=== PATIENT | female | born 1955 | race Caucasian/White ===

== ENCOUNTER 2017-01-04 10:41 | Emergency (ER) | payer OTHER ==
[~2017-01-04] VITALS: Ht 162.6 cm; Wt 103.3 kg
[~2017-01-04 10:41] MED LIST: AMIO200T42 PO; AMLO5TAB2 PO; ASPI-621 PO; ATOR10TA PO; CITA40TA12 PO; CLOP75TA PO; DICL50TA2 PO; DOCU-131 PO; FENO54TA17 PO; FLUT15.88 NAS; FLUTICASONE PROPION PO; GABA300C10 PO; GLIP10TA13 PO; GLIP5TAB22 PO; IPRA3AMP IPPB; JANUMET PO; LOVA10TA PO; MECL25TA4 PO; MELO15TA24 PO; METF10002 PO; METF500T PO; METO50TA82 PO; OMEP-110 PO; PANT40TA5 PO; PRAV40TA2 PO; RAMI10CA PO; ROPI2TAB4 PO; ROPI4TAB4 PO; TRAM50TA2 PO
[2017-01-04] MEDS ORDERED: METF1000 PO (11:13)
[2017-01-04] MEDS ORDERED: RAMI10CA PO (11:13)
[2017-01-04] MEDS ORDERED: SODIUM CHLORIDE FLUSH 10ML SYR IVF ONE (11:30)
[2017-01-04 11:44] LABS: HEMATOCRIT 37.4 % (34.6-47.8); HEMOGLOBIN 12.4 g/dL (11.7-16.4); WHITE BLOOD COUNT 7.7 x10^3/uL (3.4-10)
[2017-01-04 12:09] LABS: BLOOD UREA NITROGEN 14 mg/dL (7-18)
[2017-01-04 12:20] LABS: DIFF TOTAL CELLS COUNTED 100 CELL DIFF
[2017-01-04 12:21] LABS: ANISOCYTOSIS 1+; ASPARTATE AMINO TRANSFERASE 17 U/L (15-37); IS PT STATUS REG ER OR PRE ER? YES; MICROCYTOSIS 1+; VERIFY COUNTS? YES
[2017-01-04] MEDS ORDERED: LIDOCAINE 1%, 20ML ONE ×2 (12:56→13:28)
[2017-01-04 13:15] VITALS: BP 157/80
[2017-01-05] MEDS ORDERED: GLIP-164 PO (23:06)
[2017-01-05] MEDS ORDERED: CLOP75TA52 PO (23:06)
[2017-01-06] MEDS ORDERED: FLUT9.9S NAS (12:51)
[2017-01-07] MEDS ORDERED: POTA10TA11 PO (11:01)
[2017-01-07] MEDS ORDERED: GLIP-164 PO (11:01)
[2017-01-07] MEDS ORDERED: FURO-93 PO (11:01)
[2017-01-07] MEDS ORDERED: INSU100I28 SQ-INSULIN (11:01)
[2017-01-07] MEDS ORDERED: INSU100V8 SQ ×2 (11:52→11:53)
== END 2017-01-04 14:12 | disposition home or self-care (01) ==
LOC: ED 13:14
DX: R06.00 Dyspnea, unspecified (principal); J91.0 Malignant pleural effusion; K21.9 Gastro-esophageal reflux disease without esophagitis; I10 Essential (primary) hypertension; E11.9 Type 2 diabetes mellitus without complications; E78.00 Pure hypercholesterolemia, unspecified; Z90.49 Acquired absence of other specified parts of digestive tract
CPT/HCPCS: 32555; 36415; 71020; 80053; 84484; 85025; 85610; 85730; 93005; 93971; 99285; J3490

== ENCOUNTER 2017-03-15 17:55 | Emergency (ER) | payer OTHER ==
[~2017-03-15] VITALS: Ht 162.6 cm; Wt 102.8 kg
[~2017-03-15 17:55] MED LIST changes: +CLOP75TA52 PO; +FLUT9.9S NAS; +FURO-93 PO; +GLIP-164 PO; +INSU100I28 SQ-INSULIN; +INSU100V8 SQ; +METF1000 PO; +POTA10TA11 PO
[2017-03-15 19:43] VITALS: BP 120/60
== END 2017-03-15 19:47 | disposition home or self-care (01) ==
LOC: ED 18:39
DX: I80.8 Phlebitis and thrombophlebitis of other sites (principal); K21.9 Gastro-esophageal reflux disease without esophagitis; E78.00 Pure hypercholesterolemia, unspecified; E11.65 Type 2 diabetes mellitus with hyperglycemia; I10 Essential (primary) hypertension; Z90.49 Acquired absence of other specified parts of digestive tract; Z90.710 Acquired absence of both cervix and uterus; Z95.1 Presence of aortocoronary bypass graft
CPT/HCPCS: 99284

== ENCOUNTER 2017-05-27 10:14 | Emergency (ER) | payer OTHER ==
[~2017-05-27] VITALS: Ht 160 cm; Wt 101.9 kg
[2017-05-27 10:17] VITALS: BP 157/78
== END 2017-05-27 10:52 | disposition home or self-care (01) ==
LOC: ED 10:34
DX: L02.412 Cutaneous abscess of left axilla (principal); K21.9 Gastro-esophageal reflux disease without esophagitis; I10 Essential (primary) hypertension; E11.65 Type 2 diabetes mellitus with hyperglycemia; E78.00 Pure hypercholesterolemia, unspecified; Z90.49 Acquired absence of other specified parts of digestive tract; Z90.710 Acquired absence of both cervix and uterus; Z95.1 Presence of aortocoronary bypass graft
CPT/HCPCS: 99283

== ENCOUNTER 2017-05-29 16:04 | Emergency (ER) | payer OTHER ==
[~2017-05-29] VITALS: Ht 160 cm; Wt 101.5 kg
[2017-05-29 16:05] VITALS: BP 167/75
== END 2017-05-29 17:38 | disposition home or self-care (01) ==
LOC: ED 16:50
DX: L02.412 Cutaneous abscess of left axilla (principal); E11.65 Type 2 diabetes mellitus with hyperglycemia; K21.9 Gastro-esophageal reflux disease without esophagitis; I10 Essential (primary) hypertension; Z90.49 Acquired absence of other specified parts of digestive tract; Z90.710 Acquired absence of both cervix and uterus; Z95.1 Presence of aortocoronary bypass graft; Z91.010 Allergy to peanuts
CPT/HCPCS: 99283

== ENCOUNTER 2017-09-15 19:51 | Inpatient (IN) | payer OTHER ==
[~2017-09-15] VITALS: Ht 160 cm; Wt 102.5 kg
[2017-09-15] MEDS ORDERED: SODIUM CHLORIDE FLUSH 10ML SYR IVF ONE (20:30)
[2017-09-15 20:47] LABS: MEAN CORPUSCULAR HEMOGLOBIN 27.8 pg (27.0-34.8); MEAN CORPUSCULAR HGB CONC 34.8 g/dL (32.4-35.8); MEAN CORPUSCULAR VOLUME 79.8 fL (80-100); MEAN PLATELET VOLUME 9.4 fL (7.4-10.4); PLATELET COUNT 212 x10^3/uL (130-400); RED BLOOD COUNT 5.05 x10^6/uL (3.82-5.3); RED CELL DISTRIBUTION WIDTH 17.4 % (9.6-15.2)
[2017-09-15 21:00] LABS: MD YES
[2017-09-15 21:03] LABS: BANDS%(MANUAL) 2 % (0-7); EOS% (MANUAL) 1 % (1-7); LYMPHS% (MANUAL) 55 % (22-44); MONOS% (MANUAL) 3 % (2-9); SEGS% (MANUAL) 39 % (42-75)
[2017-09-15 21:04] LABS: ANISOCYTOSIS 1+
[2017-09-15 21:04] LABS: MICROSCOPIC AUTO
[2017-09-15 21:05] LABS: ALBUMIN 3.5 g/dL (3.4-5.0); ANION GAP 10 mmol/L (5-15); CALCIUM 9.4 mg/dL (8.5-10.1); CHLORIDE 98 mmol/L (98-107); POLYCHROMASIA 1+
[2017-09-15 21:06] LABS: <PLATELET ESTIMATE> ADEQUATE; LARGE PLATELETS 1+
[2017-09-15 21:08] LABS: CULTURE INDICATED? YES
[2017-09-15 21:14] LABS: ALANINE AMINOTRANSFERASE 32 U/L (12-78); ALKALINE PHOSPHATASE 137 U/L (45-117); ECHINOCYTES 1+; TOTAL PROTEIN 7.5 g/dL (6.4-8.2)
[2017-09-15] MEDS ORDERED: PROCHLORPERAZINE 5 MG/ML, 2ML ONE (21:19)
[2017-09-15] MEDS ORDERED: MORPHINE SULFATE 4 MG/ML, 1ML ONE (21:19)
[2017-09-15] MEDS ORDERED: SODIUM CHLORIDE 0.9% 1,000ML IVBOLUS ONE (21:30)
[2017-09-15] MEDS ORDERED: PROCHLORPERAZINE 5 MG/ML, 2ML IVPush ONE (21:30)
[2017-09-15] MEDS ORDERED: MORPHINE SULFATE 4 MG/ML, 1ML IVPush PRN (21:30)
[2017-09-15 21:33] LABS: ACETONE, SERUM Trace (10mg/dL) mg/dL (Negative)
[2017-09-15] MEDS ORDERED: OMNIPAQUE 350 MG/ML, 100ML BOTTLE ONE (22:00)
[2017-09-15] MEDS ORDERED: CEFTRIAXONE PMX 1GM/50ML 50 ML IV ONE (23:30)
[2017-09-15] MEDS ORDERED: INSULIN REGULAR 100 UNITS/ML, 3ML VIAL SQ-INSULIN SCH (23:30)
[2017-09-16] MEDS ORDERED: CEFTRIAXONE PMX 1GM/50ML 50 ML ONE (00:09)
[2017-09-16] MEDS ORDERED: INSULIN REGULAR 100 UNITS/ML, 3ML VIAL ONE (00:11)
[2017-09-16 01:20] VITALS: BP 170/90
[2017-09-16] MEDS ORDERED: hydrALAzine 20 MG/ML, 1ML IVPush PRN (02:00)
[2017-09-16] MEDS ORDERED: INSULIN GLARGINE HUM REC ANLOG 10 UNIT SQ SCH (02:00)
[2017-09-16] MEDS ORDERED: ONDANSETRON 2MG/ML, 2ML IVPush PRN (02:00)
[2017-09-16] MEDS ORDERED: CEFTRIAXONE PMX 1GM/50ML 50 ML IV ONE ×2 (02:00→12:00)
[2017-09-16] MEDS ORDERED: morphine SULFATE 10 MG/ML, 1ML IVPush PRN (02:00)
[2017-09-16] MEDS ORDERED: PROMETHAZINE 25 MG/ML, 1ML IM PRN (02:00)
[2017-09-16] MEDS ORDERED: ACETAMINOPHEN 325 MG TABLET PO PRN (02:00)
[2017-09-16] MEDS ORDERED: BISACODYL 10 MG SUPP PR PRN (02:00)
[2017-09-16] MEDS ORDERED: OXYcodone IR 5MG TABLET PO PRN (02:00)
[2017-09-16] MEDS ORDERED: FLUTICASONE NASAL SPRAY 16GM NAS PRN (02:00)
[2017-09-16] MEDS ORDERED: DOCUSATE 100 MG CAPSULE PO PRN (02:00)
[2017-09-16] MEDS ORDERED: ONDANSETRON ODT 4 MG PO PRN (02:00)
[2017-09-16 02:48] LABS: FREE T4 (FREE THYROXINE) 1.12 ng/dL (0.76-1.46); THYROID STIMULATING HORMONE 2.31 mIU/L (0.358-3.740)
[2017-09-16] MEDS: INSULIN GLARGINE 100 UNITS/ML, PEN SQ-INSULIN SCH ×2 (02:56→09:19)
[2017-09-16] MEDS: HEPARIN 5,000 UNITS/ML, 1ML SQ SCH ×2 (02:56→10:00)
[2017-09-16] MEDS: INSULIN LISPRO 100 UNITS/ML, PEN SQ-INSULIN SCH ×4 (02:56→16:00)
[2017-09-16] MEDS: SODIUM CHLORIDE 0.9% 1,000 ML IV SCH ×2 (02:57→13:10)
[2017-09-16] MEDS: GABAPENTIN 100 MG CAPSULE PO SCH ×4 (02:57→16:00)
[2017-09-16] MEDS ORDERED: INSULIN GLARGINE 100 UNITS/ML, PEN SQ-INSULIN SCH ×3 (03:00→09:00)
[2017-09-16 03:05] LABS: HEMOGLOBIN A1C 14.1 % (4.2-6.3)
[2017-09-16 03:16] LABS: ANION GAP 9 mmol/L (5-15); CALCIUM 9.3 mg/dL (8.5-10.1); CHLORIDE 103 mmol/L (98-107)
[2017-09-16] MEDS: ROPINIROLE 1MG TABLET PO SCH ×3 (05:26→17:06)
[2017-09-16 08:00] VITALS: BP 93/54
[2017-09-16] MEDS ORDERED: CLOPIDOGREL 75 MG TABLET PO SCH (09:00)
[2017-09-16] MEDS ORDERED: ROPINIROLE 1MG TABLET PO SCH (09:00)
[2017-09-16] MEDS ORDERED: CITALOPRAM 20 MG TABLET PO SCH (09:00)
[2017-09-16] MEDS ORDERED: INSULIN GLARGINE HUM REC ANLOG 15 UNIT SQ SCH (09:00)
[2017-09-16] MEDS ORDERED: PANTOPROZOLE 40MG TABLET PO SCH (09:00)
[2017-09-16] MEDS ORDERED: SENNA/DOCUSATE TABLET PO SCH (09:00)
[2017-09-16] MEDS ORDERED: GLIPizide ER 5 MG TABLET PO SCH (09:00)
[2017-09-16] MEDS: RAMIPRIL 10 MG CAPSULE PO SCH ×2 (09:00→09:21)
[2017-09-16] MEDS ORDERED: POTASSIUM CHLORIDE 10 MEQ TABLET.ER PO SCH (09:00)
[2017-09-16] MEDS: METOPROLOL TARTRATE 50 MG TABLET PO SCH ×2 (09:00→09:22)
[2017-09-16] MEDS ORDERED: FUROSEMIDE 20 MG TABLET PO SCH (09:00)
[2017-09-16] MEDS ORDERED: ASPIRIN 81 MG TABLET EC PO SCH (09:00)
[2017-09-16] MEDS ORDERED: SULF1TAB24 PO (11:57)
[2017-09-16] MEDS ORDERED: LORazepam 2 MG/ML, 1ML IVPush ONE (12:30)
[2017-09-16 14:15] VITALS: BP 105/65
[2017-09-16] MEDS ORDERED: FENOFIBRATE 54 MG TABLET PO SCH (21:00)
[2017-09-16] MEDS ORDERED: ATORVASTATIN 40 MG TABLET PO SCH (21:00)
[2017-09-16] MEDS ORDERED: CEFTRIAXONE PMX 2GM/50ML 50 ML IV SCH (23:00)
== END 2017-09-16 17:59 | disposition home or self-care (01) | DRG 438 ==
LOC: ED 21:51 → EDIP 23:55 → 3NE 09-16 01:35
PROVIDERS: ADMIT Internal Medicine; ATTEND Hospitalist
DX: K85.90 Acute pancreatitis without necrosis or infection, unspecified (principal); N17.0 Acute kidney failure with tubular necrosis; N10 Acute pyelonephritis; E11.40 Type 2 diabetes mellitus with diabetic neuropathy, unspecified; Z68.41 Body mass index [BMI] 40.0-44.9, adult; E11.65 Type 2 diabetes mellitus with hyperglycemia; E87.1 Hypo-osmolality and hyponatremia; I50.20 Unspecified systolic (congestive) heart failure; K86.89 Other specified diseases of pancreas; I11.0 Hypertensive heart disease with heart failure; E27.9 Disorder of adrenal gland, unspecified; R71.8 Other abnormality of red blood cells; E66.9 Obesity, unspecified; B96.20 Unspecified Escherichia coli [E. coli] as the cause of diseases classified elsewhere; E78.00 Pure hypercholesterolemia, unspecified; E78.5 Hyperlipidemia, unspecified; F41.9 Anxiety disorder, unspecified; G89.29 Other chronic pain; M54.9 Dorsalgia, unspecified; I25.10 Atherosclerotic heart disease of native coronary artery without angina pectoris; K21.9 Gastro-esophageal reflux disease without esophagitis; M19.90 Unspecified osteoarthritis, unspecified site; Z79.4 Long term (current) use of insulin; Z83.3 Family history of diabetes mellitus; Z85.6 Personal history of leukemia; Z86.72 Personal history of thrombophlebitis; Z90.710 Acquired absence of both cervix and uterus; Z95.1 Presence of aortocoronary bypass graft; Z91.010 Allergy to peanuts; Z90.49 Acquired absence of other specified parts of digestive tract
CPT/HCPCS: 36415; 74177; 80048; 80053; 81001; 82010; 82962; 83036; 83690; 83735; 84439; 84443; 85025; 87040; 87077; 87086; 87186; J0696; J1644; Q9967; J0780; J1815; J7030

== ENCOUNTER 2017-11-12 10:17 | Emergency (ER) | payer OTHER ==
[~2017-11-12] VITALS: Ht 160 cm; Wt 99.0 kg
[~2017-11-12 10:17] MED LIST changes: +SULF1TAB24 PO
[2017-11-12] MEDS ORDERED: SODIUM CHLORIDE 0.9% 1,000ML IV ONE (11:00)
[2017-11-12] MEDS ORDERED: SODIUM CHLORIDE FLUSH 10ML SYR IVF ONE (11:00)
[2017-11-12 11:38] LABS: MEAN CORPUSCULAR HGB CONC 34.2 g/dL (32.4-35.8); MEAN CORPUSCULAR VOLUME 81.8 fL (80-100); MEAN PLATELET VOLUME 9.2 fL (7.4-10.4); PLATELET COUNT 187 x10^3/uL (130-400); RED BLOOD COUNT 4.77 x10^6/uL (3.82-5.3); RED CELL DISTRIBUTION WIDTH 16.4 % (9.6-15.2)
[2017-11-12 11:50] LABS: ALBUMIN 3.4 g/dL (3.4-5.0); ANION GAP 10 mmol/L (5-15); CALCIUM 9.2 mg/dL (8.5-10.1); CHLORIDE 95 mmol/L (98-107); CREATININE 1.07 mg/dL (0.55-1.02)
[2017-11-12 11:53] LABS: ALKALINE PHOSPHATASE 127 U/L (45-117); TOTAL PROTEIN 7.5 g/dL (6.4-8.2)
[2017-11-12 11:58] LABS: MICROSCOPIC AUTO
[2017-11-12 12:03] LABS: ALANINE AMINOTRANSFERASE 37 U/L (12-78)
[2017-11-12 12:05] LABS: CULTURE INDICATED? YES
[2017-11-12] MEDS ORDERED: CEFTRIAXONE PMX 1GM/50ML 50 ML ONE (12:19)
[2017-11-12 12:23] LABS: MD YES
[2017-11-12 12:26] LABS: BAND#(MANUAL) 0.11 x10^3/uL; BANDS%(MANUAL) 2 % (0-7); BASOS#(MANUAL) 0.05 x10^3/uL (0-0.1); BASOS% (MANUAL) 1 % (0-1); EOS#(MANUAL) 0.16 x10^3/uL (0.0-0.4); EOS% (MANUAL) 3 % (1-7); LYMPH#(MANUAL) 2.59 x10^3/uL (1-3.4); LYMPHS% (MANUAL) 48 % (22-44); MONOS#(MANUAL) 0.05 x10^3/uL (0.3-2.7); MONOS% (MANUAL) 1 % (2-9); REACTIVE LYMPHS # (MANUAL) 0.32 x10^3/uL (0-0); REACTIVE LYMPHS % (MANUAL) 6 % (0-0); SEG#(MANUAL) 2.11 x10^3/uL (1.8-6.8); SEGS% (MANUAL) 39 % (42-75)
[2017-11-12 12:27] LABS: ANISOCYTOSIS 1+; POLYCHROMASIA 1+
[2017-11-12 12:28] LABS: <PLATELET ESTIMATE> ADEQUATE; LARGE PLATELETS 1+
[2017-11-12] MEDS ORDERED: CEFTRIAXONE 1,000 MG in SODIUM CHLORIDE 0.9% 50 ML IVPB ONE (12:30)
[2017-11-12] MEDS ORDERED: INSULIN REGULAR 100 UNITS/ML, 3ML VIAL SQ-INSULIN ONE (12:30)
[2017-11-12] MEDS ORDERED: INSULIN REGULAR 100 UNITS/ML, 3ML VIAL ONE (12:31)
[2017-11-12 12:58] VITALS: BP 155/78
[2017-11-12] MEDS ORDERED: HYDROcodone/APAP 5/325 TABLET PO ONE (13:00)
[2017-11-12] MEDS ORDERED: HYDROcodone/APAP 5/325 TABLET ONE (13:00)
== END 2017-11-12 14:38 | disposition home or self-care (01) ==
LOC: ED 13:42
DX: N30.90 Cystitis, unspecified without hematuria (principal); I10 Essential (primary) hypertension; K21.9 Gastro-esophageal reflux disease without esophagitis; E78.00 Pure hypercholesterolemia, unspecified; E11.65 Type 2 diabetes mellitus with hyperglycemia
CPT/HCPCS: 36415; 74176; 80053; 81001; 83605; 84145; 85025; 87040; 87077; 87086; 87186; 96365; 99285; J0696; J7030

== ENCOUNTER 2018-06-25 18:07 | Observation (INO) | payer OTHER ==
[~2018-06-25] VITALS: Ht 160 cm; Wt 96.9 kg
[~2018-06-25 18:07] MED LIST changes: +AMLO-150 PO; -AMLO5TAB2 PO; -ASPI-621 PO; +ASPI81TA45 PO; -GLIP-164 PO; +GLIP10TA24 PO; -IPRA3AMP IPPB; +IPRA3AMP30 IPPB; -RAMI10CA PO; +RAMI10CA59 PO; -ROPI4TAB4 PO; +ROPI4TAB8 PO
--- NOTE | 2018-06-25 18:34 | NUR ---
PT PRESENTED TO D/T EXPERIENCING "FLU LIKE" SYMPTOMS X2 WEEKS. PT ALSO HAS COMPLAINTS OF CHEST PAIN X1 WEEK. PT STATE STOP TAKING ALL MEDICATIONS 4 MONTHS AGO. 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 PT STATES ALL MEDICATION IS BUT SHE HAS AN APPOINTMENT WITH HER PRIMARY CARE DOCTOR NEXT MONTH.
[2018-06-25] MEDS ORDERED: NITROGLYCERIN OINT 2%, 1GM TP ONE ×2 (18:47→19:00)
[2018-06-25 18:51] LABS: MEAN CORPUSCULAR HEMOGLOBIN 27.7 pg (27.0-34.8); MEAN CORPUSCULAR HGB CONC 34.6 g/dL (32.4-35.8); MEAN CORPUSCULAR VOLUME 80.1 fL (80-100); MEAN PLATELET VOLUME 8.9 fL (7.4-10.4); PLATELET COUNT 220 x10^3/uL (130-400); RED BLOOD COUNT 4.91 x10^6/uL (3.82-5.3); RED CELL DISTRIBUTION WIDTH 15.6 % (9.6-15.2)
--- NOTE | 2018-06-25 18:58 | NUR ---
REPORT TO SUDHA ELIAS.
[2018-06-25 18:59] LABS: ALBUMIN 3.3 g/dL (3.4-5.0); ANION GAP 11 mmol/L (5-15); CALCIUM 8.6 mg/dL (8.5-10.1); CHLORIDE 97 mmol/L (98-107)
[2018-06-25] MEDS ORDERED: SODIUM CHLORIDE FLUSH 10ML SYR IVF ONE (19:00)
[2018-06-25] MEDS ORDERED: LABETALOL 5MG/ML, 20ML IVPush ONE (19:00)
[2018-06-25 19:04] LABS: ALKALINE PHOSPHATASE 149 U/L (45-117); BILIRUBIN,TOTAL 0.5 mg/dL (0.2-1.0); CREATININE 0.93 mg/dL (0.55-1.02); TOTAL PROTEIN 7.3 g/dL (6.4-8.2)
[2018-06-25 19:18] LABS: MD YES
[2018-06-25 19:20] LABS: ALANINE AMINOTRANSFERASE 29 U/L (12-78)
[2018-06-25 19:21] LABS: BASOS#(MANUAL) 0.15 x10^3/uL (0-0.1); BASOS% (MANUAL) 2 % (0-1); MONOS#(MANUAL) 0.15 x10^3/uL (0.3-2.7); MONOS% (MANUAL) 2 % (2-9)
[2018-06-25 19:22] LABS: EOS#(MANUAL) 0.08 x10^3/uL (0.0-0.4); EOS% (MANUAL) 1 % (1-7); LYMPH#(MANUAL) 6.01 x10^3/uL (1-3.4); LYMPHS% (MANUAL) 78 % (22-44); SEG#(MANUAL) 1.31 x10^3/uL (1.8-6.8); SEGS% (MANUAL) 17 % (42-75)
[2018-06-25 19:23] LABS: <PLATELET ESTIMATE> ADEQUATE; ANISOCYTOSIS 1+; POLYCHROMASIA 1+; SMUDGE CELLS 1+
[2018-06-25 19:24] LABS: LARGE PLATELETS 1+
[2018-06-25] MEDS ORDERED: ASPIRIN 325 MG TABLET PO ONE (19:30)
[2018-06-25] MEDS ORDERED: INSULIN REGULAR 100 UNITS/ML, 3ML VIAL SQ-INSULIN ONE (19:30)
[2018-06-25] MEDS ORDERED: INSULIN REGULAR 100 UNITS/ML, 3ML VIAL ONE (19:57)
[2018-06-25] MEDS ORDERED: ASPIRIN 325 MG TABLET ONE (19:58)
--- NOTE | 2018-06-25 20:05 | NUR ---
PT MEDICATED PER JUN. PT RESTING COMFORTABLY IN [facility] AT THIS TIME. VSS AND UPDATED IN EMR.
[2018-06-25] MEDS ORDERED: hydrALAzine 20 MG/ML, 1ML IVPush PRN (20:30)
[2018-06-25] MEDS ORDERED: DEXTROSE 50%, 50ML SYRINGE IVPush PRN (21:00)
[2018-06-25] MEDS ORDERED: PSEUDOEPHEDRINE 30 MG TABLET PO PRN (21:00)
[2018-06-25] MEDS ORDERED: GLUCAGON 1 MG IM PRN (21:00)
[2018-06-25] MEDS ORDERED: DEXTROSE 4 GM TAB.CHEW PO PRN (21:00)
[2018-06-25] MEDS: SODIUM CHLORIDE FLUSH 10ML SYR IVF SCH (21:20)
[2018-06-25] MEDS: HEPARIN 5,000 UNITS/ML, 1ML SQ SCH (21:21)
[2018-06-25] MEDS: AMOXICILLIN/CLAV 875-125MG TABLET PO SCH (21:21)
[2018-06-25] MEDS: GUAIFENESIN 200 MG TABLET PO SCH (21:21)
[2018-06-25] MEDS: INSULIN LISPRO 100 UNITS/ML, PEN SQ-INSULIN SCH (22:01)
[2018-06-25] MEDS: INSULIN GLARGINE 100 UNITS/ML, PEN SQ-INSULIN SCH (22:02)
[2018-06-25] MEDS: ACETAMINOPHEN 325 MG TABLET PO PRN (22:18)
[2018-06-25 23:19] VITALS: BP 162/95
[2018-06-26] VITALS (11 sets, daily range): BP systolic 112–160; BP diastolic 72–107
[2018-06-26] MEDS ORDERED: ROPINIROLE 1MG TABLET PO ONE (00:30)
[2018-06-26] MEDS ORDERED: GABAPENTIN 300 MG CAPSULE PO ONE (04:30)
[2018-06-26] MEDS ORDERED: GABA300C PO (04:39)
[2018-06-26] MEDS: HEPARIN 5,000 UNITS/ML, 1ML SQ SCH ×3 (05:40→23:15)
[2018-06-26] MEDS: ATORVASTATIN 40 MG TABLET PO SCH ×2 (05:40→21:24)
[2018-06-26] MEDS: GUAIFENESIN 200 MG TABLET PO SCH ×2 (05:40→11:25)
[2018-06-26] MEDS: ACETAMINOPHEN 325 MG TABLET PO PRN ×3 (05:40→23:14)
[2018-06-26 05:48] LABS: ANION GAP 8 mmol/L (5-15); CALCIUM 8.5 mg/dL (8.5-10.1); CHLORIDE 99 mmol/L (98-107); CREATININE 0.78 mg/dL (0.55-1.02)
[2018-06-26 05:58] LABS: MEAN CORPUSCULAR HEMOGLOBIN 27.5 pg (27.0-34.8); MEAN CORPUSCULAR HGB CONC 34.4 g/dL (32.4-35.8); MEAN PLATELET VOLUME 8.8 fL (7.4-10.4); PLATELET COUNT 174 x10^3/uL (130-400); RED BLOOD COUNT 4.13 x10^6/uL (3.82-5.3); RED CELL DISTRIBUTION WIDTH 15.7 % (9.6-15.2)
[2018-06-26 06:26] LABS: MD YES
[2018-06-26 06:29] LABS: <PLATELET ESTIMATE> ADEQUATE; ANISOCYTOSIS 1+; BAND#(MANUAL) 0.05 x10^3/uL; BANDS%(MANUAL) 1 % (0-7); EOS% (MANUAL) 2 % (1-7); LYMPH#(MANUAL) 3.69 x10^3/uL (1-3.4); LYMPHS% (MANUAL) 71 % (22-44); MONOS#(MANUAL) 0.21 x10^3/uL (0.3-2.7); MONOS% (MANUAL) 4 % (2-9); SEG#(MANUAL) 1.14 x10^3/uL (1.8-6.8); SEGS% (MANUAL) 22 % (42-75)
[2018-06-26 06:30] LABS: <PLT MORPHOLOGY> NORMAL PLT MORPH
[2018-06-26] MEDS: INSULIN LISPRO 100 UNITS/ML, PEN SQ-INSULIN SCH ×4 (08:41→21:24)
[2018-06-26] MEDS: SODIUM CHLORIDE FLUSH 10ML SYR IVF SCH ×2 (08:42→21:23)
[2018-06-26] MEDS: AMOXICILLIN/CLAV 875-125MG TABLET PO SCH (08:42)
[2018-06-26 09:18] LABS: TROPONIN I 0.029 ng/mL (0.000-0.045)
[2018-06-26] MEDS: GABAPENTIN 300 MG CAPSULE PO SCH ×3 (12:31→21:24)
[2018-06-26] MEDS ORDERED: REGADENOSON 0.4 MG/5 ML SYRINGE ONE (12:43)
[2018-06-26] MEDS ORDERED: SODIUM CHLORIDE NASAL SPRAY 45ML BOTTLE NAS PRN (13:00)
[2018-06-26] MEDS ORDERED: BENZONATATE 100 MG CAPSULE PO PRN (14:00)
[2018-06-26] MEDS ORDERED: KETOROLAC 30 MG/1 ML IVPush PRN (14:00)
[2018-06-26] MEDS ORDERED: CETIRIZINE 10 MG TABLET PO PRN (14:00)
[2018-06-26] MEDS: METHOCARBAMOL 500 MG TABLET PO SCH ×2 (15:05→21:24)
[2018-06-26] MEDS: LIDODERM 5% PATCH TD SCH (15:06)
[2018-06-26] MEDS ORDERED: INSULIN LISPRO 100 UNITS/ML, PEN SQ-INSULIN SCH (16:00)
[2018-06-26] MEDS: CARVEDILOL 6.25 MG TABLET PO SCH (18:20)
[2018-06-26 18:52] LABS: HEMOGLOBIN A1C 14.1 % (4.2-6.3)
[2018-06-26] MEDS ORDERED: SODIUM CHLORIDE NASAL SPRAY 45ML BOTTLE NAS SCH (21:00)
[2018-06-26] MEDS: INSULIN GLARGINE 100 UNITS/ML, PEN SQ-INSULIN SCH (21:00)
[2018-06-26] MEDS: ROPINIROLE 1MG TABLET PO SCH (21:24)
[2018-06-26] MEDS ORDERED: LABETALOL 5 MG/ML SYRINGE IVPush ONE (21:30)
[2018-06-27 02:00] VITALS: BP 135/79
[2018-06-27] MEDS: LIDODERM REMOVE PATCH NOTE XX SCH (02:52)
[2018-06-27 06:01] VITALS: BP 129/75
[2018-06-27] MEDS: METHOCARBAMOL 500 MG TABLET PO SCH ×2 (06:03→11:18)
[2018-06-27] MEDS: CARVEDILOL 6.25 MG TABLET PO SCH ×2 (06:03→16:37)
[2018-06-27] MEDS: ASPIRIN 325 MG TABLET PO SCH (06:03)
[2018-06-27] MEDS: HEPARIN 5,000 UNITS/ML, 1ML SQ SCH ×2 (07:00→15:00)
[2018-06-27] MEDS: CLOPIDOGREL 75 MG TABLET PO SCH (08:33)
[2018-06-27] MEDS: SODIUM CHLORIDE FLUSH 10ML SYR IVF SCH ×2 (08:34→21:34)
[2018-06-27] MEDS: LISINOPRIL 5 MG TABLET PO SCH (08:34)
[2018-06-27] MEDS: GABAPENTIN 300 MG CAPSULE PO SCH ×3 (08:34→21:33)
[2018-06-27] MEDS: INSULIN LISPRO 100 UNITS/ML, PEN SQ-INSULIN SCH ×4 (08:34→21:33)
[2018-06-27 08:40] VITALS: BP 121/79
[2018-06-27] MEDS: ACETAMINOPHEN 325 MG TABLET PO PRN ×2 (11:18→16:38)
[2018-06-27 13:30] VITALS: BP 122/78
[2018-06-27] MEDS ORDERED: TICAGRELOR 90 MG TABLET ONE (14:49)
[2018-06-27] MEDS ORDERED: MIDAZOLAM 1 MG/ML, 5ML ONE (14:49)
[2018-06-27] MEDS ORDERED: FENTANYL PF 100 MCG/2ML ONE (14:49)
[2018-06-27] MEDS ORDERED: VERAPAMIL 2.5 MG/ML, 2ML ONE (14:50)
[2018-06-27] MEDS ORDERED: BIVALIRUDIN 250 MG ONE (14:50)
[2018-06-27] MEDS ORDERED: METHOCARBAMOL 500 MG TABLET PO PRN (15:00)
[2018-06-27] MEDS ORDERED: SODIUM CHLORIDE 0.9% 1,000 ML IV SCH (16:04)
[2018-06-27 20:00] VITALS: BP 135/87
[2018-06-27] MEDS ORDERED: ONDANSETRON 4 MG TABLET PO PRN (20:00)
[2018-06-27] MEDS: LIDODERM 5% PATCH TD SCH (20:00)
[2018-06-27] MEDS ORDERED: INSULIN GLARGINE 100 UNITS/ML, PEN SQ-INSULIN SCH (21:00)
[2018-06-27] MEDS: ATORVASTATIN 40 MG TABLET PO SCH (21:32)
[2018-06-27] MEDS: ROPINIROLE 1MG TABLET PO SCH (21:33)
[2018-06-28] MEDS: ACETAMINOPHEN 325 MG TABLET PO PRN ×2 (00:03→08:09)
[2018-06-28] MEDS: HEPARIN 5,000 UNITS/ML, 1ML SQ SCH ×2 (00:03→08:05)
[2018-06-28] MEDS: LIDODERM REMOVE PATCH NOTE XX SCH (01:29)
[2018-06-28 02:00] VITALS: BP 140/81
[2018-06-28 05:20] LABS: ANION GAP 6 mmol/L (5-15); CALCIUM 8.7 mg/dL (8.5-10.1); CHLORIDE 105 mmol/L (98-107); CREATININE 0.72 mg/dL (0.55-1.02)
[2018-06-28 05:24] LABS: MEAN CORPUSCULAR HEMOGLOBIN 26.7 pg (27.0-34.8); MEAN CORPUSCULAR HGB CONC 32.9 g/dL (32.4-35.8); MEAN PLATELET VOLUME 8.9 fL (7.4-10.4); PLATELET COUNT 183 x10^3/uL (130-400); RED CELL DISTRIBUTION WIDTH 15.6 % (9.6-15.2)
[2018-06-28 05:48] VITALS: BP 135/86
[2018-06-28] MEDS: ASPIRIN 325 MG TABLET PO SCH (05:49)
[2018-06-28] MEDS: CARVEDILOL 6.25 MG TABLET PO SCH (05:49)
[2018-06-28 06:20] LABS: MD YES
[2018-06-28 06:22] LABS: BAND#(MANUAL) 0.09 x10^3/uL; BANDS%(MANUAL) 1 % (0-7); EOS#(MANUAL) 0.09 x10^3/uL (0.0-0.4); EOS% (MANUAL) 1 % (1-7); LYMPHS% (MANUAL) 80 % (22-44); MONOS#(MANUAL) 0.43 x10^3/uL (0.3-2.7); MONOS% (MANUAL) 5 % (2-9); SEG#(MANUAL) 1.11 x10^3/uL (1.8-6.8); SEGS% (MANUAL) 13 % (42-75)
[2018-06-28 06:24] LABS: <PLATELET ESTIMATE> ADEQUATE; <PLT MORPHOLOGY> NORMAL PLT MORPH; ANISOCYTOSIS 1+; POLYCHROMASIA 1+
[2018-06-28 06:56] VITALS: BP 106/69
[2018-06-28] MEDS: GABAPENTIN 300 MG CAPSULE PO SCH (08:04)
[2018-06-28] MEDS: SODIUM CHLORIDE FLUSH 10ML SYR IVF SCH (08:05)
[2018-06-28] MEDS: CLOPIDOGREL 75 MG TABLET PO SCH (08:05)
[2018-06-28] MEDS: LISINOPRIL 5 MG TABLET PO SCH (08:05)
[2018-06-28] MEDS: INSULIN LISPRO 100 UNITS/ML, PEN SQ-INSULIN SCH ×2 (08:10→11:43)
[2018-06-28 13:45] VITALS: BP 110/72
[2018-06-28] MEDS ORDERED: CLOP75TA PO (14:52)
[2018-06-28] MEDS ORDERED: ATOR40TA78 PO (14:52)
[2018-06-28] MEDS ORDERED: LISI5TAB7 PO (14:52)
[2018-06-28] MEDS ORDERED: CARV6.2512 PO (14:52)
[2018-06-28] MEDS ORDERED: ASPI325T17 PO (14:52)
[2018-06-28] MEDS ORDERED: BENZ-17 PO (14:52)
== END 2018-06-28 17:10 | disposition home or self-care (01) ==
LOC: ED 19:06 → EDIP 19:25 → INTOOBSV 19:25 → 5SO 20:44 → DCLOUNGE 06-28 16:30
PROVIDERS: ADMIT Internal Medicine; ATTEND Internal Medicine
DX: I25.10 Atherosclerotic heart disease of native coronary artery without angina pectoris (principal); I25.82 Chronic total occlusion of coronary artery; F32.9 Major depressive disorder, single episode, unspecified; F41.9 Anxiety disorder, unspecified; G25.81 Restless legs syndrome; I10 Essential (primary) hypertension; G89.29 Other chronic pain; M54.9 Dorsalgia, unspecified; G47.33 Obstructive sleep apnea (adult) (pediatric); J44.9 Chronic obstructive pulmonary disease, unspecified; K21.9 Gastro-esophageal reflux disease without esophagitis; M19.90 Unspecified osteoarthritis, unspecified site; Z79.02 Long term (current) use of antithrombotics/antiplatelets; Z79.4 Long term (current) use of insulin; Z83.3 Family history of diabetes mellitus; Z79.899 Other long term (current) drug therapy; Z85.118 Personal history of other malignant neoplasm of bronchus and lung; Z87.891 Personal history of nicotine dependence; Z90.710 Acquired absence of both cervix and uterus; Z91.010 Allergy to peanuts; E78.5 Hyperlipidemia, unspecified; E11.65 Type 2 diabetes mellitus with hyperglycemia; E78.00 Pure hypercholesterolemia, unspecified; E11.40 Type 2 diabetes mellitus with diabetic neuropathy, unspecified; E86.0 Dehydration; D72.820 Lymphocytosis (symptomatic)
CPT/HCPCS: 36415; 71045; 76380; 78452; 80048; 80053; 82947; 82962; 83036; 83735; 83880; 84443; 84484; 85025; 93005; 93017; 93459; 96361; 96372; 96374; 99156; 99157; 99284; A9502; C1760; C1769; C1894; C8929; C9898; G0378; J1644; J1815; J2250; J2785; J3010; J7030; Q9957; Q9967; 99285; J0583

== ENCOUNTER 2018-11-01 12:17 | Emergency (ER) | payer OTHER ==
[~2018-11-01] VITALS: Ht 160 cm; Wt 90.3 kg
[~2018-11-01 12:17] MED LIST changes: +ASPI325T17 PO; +ATOR40TA78 PO; +BENZ-17 PO; +CARV6.2512 PO; +GABA300C PO; +LISI5TAB7 PO
[2018-11-01 12:31] VITALS: BP 179/83
[2018-11-01 13:18] LABS: HCT (SEDRATE) 37.2 % (34.6-47.8); O2 FLOW ROOM AIR L/min
[2018-11-01 13:19] LABS: MEAN CORPUSCULAR HEMOGLOBIN 26.8 pg (27.0-34.8); MEAN CORPUSCULAR HGB CONC 32.5 g/dL (32.4-35.8); MEAN CORPUSCULAR VOLUME 82.3 fL (80-100); MEAN PLATELET VOLUME 8.9 fL (7.4-10.4); PLATELET COUNT 199 x10^3/uL (130-400); RED BLOOD COUNT 4.57 x10^6/uL (3.82-5.3); RED CELL DISTRIBUTION WIDTH 15.5 % (9.6-15.2)
[2018-11-01 13:31] LABS: ALBUMIN 3.6 g/dL (3.4-5.0); ANION GAP 7 mmol/L (5-15); CHLORIDE 99 mmol/L (98-107)
[2018-11-01 13:32] LABS: MD YES
[2018-11-01 13:33] LABS: BAND#(MANUAL) 0.07 x10^3/uL; BANDS%(MANUAL) 1 % (0-7); LYMPHS% (MANUAL) 68 % (22-44); MONOS#(MANUAL) 0.22 x10^3/uL (0.3-2.7); MONOS% (MANUAL) 3 % (2-9); SEG#(MANUAL) 2.02 x10^3/uL (1.8-6.8); SEGS% (MANUAL) 28 % (42-75)
[2018-11-01 13:34] LABS: ANISOCYTOSIS 1+; POLYCHROMASIA 1+
[2018-11-01 13:35] LABS: <PLATELET ESTIMATE> ADEQUATE; <PLT MORPHOLOGY> NORMAL PLT MORPH
[2018-11-01 13:40] LABS: ALANINE AMINOTRANSFERASE 22 U/L (12-78); ALKALINE PHOSPHATASE 127 U/L (45-117); BILIRUBIN,TOTAL 0.9 mg/dL (0.2-1.0); TOTAL PROTEIN 7.5 g/dL (6.4-8.2)
--- NOTE | 2018-11-01 14:00 | NUR ---
TO ROOM FROM LOBBY. NAD.
[2018-11-01 14:44] LABS: ACETONE, SERUM Negative (Negative)
--- NOTE | 2018-11-01 14:50 | NUR ---
Patient soaking right foot in warm soapy water prior to wound care and dressing application. Per Dr. Braden place optifoam dressing when wound is clean.
--- NOTE | 2018-11-01 15:47 | NUR ---
PT FOOT BANDAGED AND WRAPPED FOR PT TO BE DISCHARGED.
== END 2018-11-01 16:03 | disposition home or self-care (01) ==
LOC: ED 15:29
DX: L03.115 Cellulitis of right lower limb (principal); L89.893 Pressure ulcer of other site, stage 3; E11.621 Type 2 diabetes mellitus with foot ulcer; E11.65 Type 2 diabetes mellitus with hyperglycemia; I10 Essential (primary) hypertension; K21.9 Gastro-esophageal reflux disease without esophagitis; E78.00 Pure hypercholesterolemia, unspecified; Z90.49 Acquired absence of other specified parts of digestive tract; Z90.710 Acquired absence of both cervix and uterus; Z72.9 Problem related to lifestyle, unspecified
CPT/HCPCS: 36415; 80053; 82010; 82803; 82962; 85025; 85651; 86140; 99284

== ENCOUNTER 2019-01-06 16:27 | Emergency (ER) | payer OTHER ==
[~2019-01-06] VITALS: Ht 160 cm; Wt 91.5 kg
[~2019-01-06 16:27] MED LIST changes: +FLUT15.845 NAS; -FLUT15.88 NAS
--- NOTE | 2019-01-06 17:31 | NUR ---
PT TO ED FOR GENERALIZED COMPLAINTS OF N/V, WEAKNESS AND PAIN IN LEGS AFTER ULTRASOUND TODAY. PT STATES SHE ATE SOME EGGS FROM A CAFETERIA AND THEN VOMITED THIS MORNING, BUT HAS NOT VOMITED SINCE. PT STATES HAS DIABETIC ULCER TO PLANTAR ASPECT OF RIGHT FOOT. US TODAY WAS "TO CHECK BLOOD FLOW." RESULTS UNKNOWN AT THIS TIME. PT SEES WOUND CARE QWEEK. PT CONNECTED TO MONITORS. VSS. AWAITING EDMD ASSESSMENT.
[2019-01-06 18:08] LABS: BASOPHILS # (AUTO) 0.01 x10^3/uL (0-0.1); BASOPHILS % (AUTO) 0 % (0-1); EOSINOPHILS # (AUTO) 0.08 x10^3/uL (0-0.4); EOSINOPHILS % (AUTO) 1 % (1-7); LYMPHOCYTES # (AUTO) 4.07 x10^3/uL (1-3.4); LYMPHOCYTES % (AUTO) 51 % (22-44); MD NO; MEAN CORPUSCULAR HEMOGLOBIN 26.6 pg (27.0-34.8); MEAN CORPUSCULAR HGB CONC 33.4 g/dL (32.4-35.8); MEAN CORPUSCULAR VOLUME 79.6 fL (80-100); MEAN PLATELET VOLUME 8.9 fL (7.4-10.4); MONOCYTES # (AUTO) 0.38 x10^3/uL (0.2-0.8); MONOCYTES % (AUTO) 5 % (2-9); NEUTROPHILS # (AUTO) 3.48 x10^3/uL (1.8-6.8); NEUTROPHILS % (AUTO) 43 % (42-75); PLATELET COUNT 165 x10^3/uL (130-400); RED BLOOD COUNT 4.51 x10^6/uL (3.82-5.3); RED CELL DISTRIBUTION WIDTH 16.1 % (9.6-15.2)
[2019-01-06 18:24] LABS: ALANINE AMINOTRANSFERASE 21 U/L (12-78); ALBUMIN 3.1 g/dL (3.4-5.0); ANION GAP 9 mmol/L (5-15); CHLORIDE 99 mmol/L (98-107); CREATININE 0.83 mg/dL (0.55-1.02)
[2019-01-06 18:26] LABS: ALKALINE PHOSPHATASE 109 U/L (45-117); BILIRUBIN,TOTAL 0.7 mg/dL (0.2-1.0)
[2019-01-06 18:48] LABS: MICROSCOPIC AUTO
[2019-01-06 18:59] LABS: CULTURE INDICATED? YES
--- NOTE | 2019-01-06 19:03 | NUR ---
pt to ct.
[2019-01-06 19:15] LABS: TROPONIN I < 0.015 ng/mL (0.000-0.045)
[2019-01-06] MEDS ORDERED: OMNIPAQUE 350 MG/ML, 100ML BOTTLE ONE (19:24)
[2019-01-06 19:53] VITALS: BP 145/75
--- NOTE | 2019-01-06 19:53 | NUR ---
PT BACK FROM CT, RESTING IN ROOM. VSS. NO NEEDS EXPRESSED. AWATIING RESUTLS.
== END 2019-01-06 21:28 | disposition home or self-care (01) ==
LOC: ED 20:50
DX: K85.00 Idiopathic acute pancreatitis without necrosis or infection (principal); L03.115 Cellulitis of right lower limb; E10.622 Type 1 diabetes mellitus with other skin ulcer; E10.65 Type 1 diabetes mellitus with hyperglycemia; K21.9 Gastro-esophageal reflux disease without esophagitis; E78.00 Pure hypercholesterolemia, unspecified; Z90.89 Acquired absence of other organs; Z90.710 Acquired absence of both cervix and uterus; Z95.1 Presence of aortocoronary bypass graft
CPT/HCPCS: 36415; 74177; 80053; 81001; 83690; 84484; 85025; 87077; 87086; 93005; 99284; Q9967; 87186

== ENCOUNTER 2019-07-25 18:23 | Inpatient (IN) | payer OTHER ==
[~2019-07-25] VITALS: Ht 160 cm; Wt 106.2 kg
[~2019-07-25 18:23] MED LIST changes: +EMPA25TA PO; +INSU100I13 SQ-INSULIN; +LISI40TA PO; +MECL-101 PO; +MECL12.581 PO; -MECL25TA4 PO; +METF500T17 PO; +OMEG-14 PO; -ROPI2TAB4 PO; +ROPI2TAB8 PO; +SEMA1PEN SQ
--- NOTE | 2019-07-25 18:45 | NUR ---
PT AMBULATED TO ROOM W/ A STEADY GAIT USING A WALKER.
--- NOTE | 2019-07-25 18:52 | NUR ---
THIS IS A 64 YO F W/ C/O VOMITING, WEAKNESS, LT SIDED CP, SOB, PT REPORTS RELEASED FROM HOSPITAL SUNDAY BUT S/S HAVE BEEN PRESENT X3 WEEKS. PT STATES SHE HAS NOT FOLLOWED UP WITH A BROACH GRINDER ADVISED. PT STATES SHE WAS TESTED FOR COVID19 AND TEST RESULTS WERE NEGATIVE. PT IS TACHYCARDIC AND HYPERTENSIVE. OTHER VS WDL. RESP EVEN AND UNLABORED. NADN. PT IS CONNECTED TO ALL MONITORING. RESTING ON GURNEY W/ CALL LIGHT IN REACH AWAITING ED EVAL.
--- NOTE | 2019-07-25 19:04 | NUR ---
REPORT GIVEN TO KARIN HALEY.
--- NOTE | 2019-07-25 19:07 | NUR ---
Report received from SUDHA Dennis. This RN to assume care.
[2019-07-25 19:49] LABS: ALBUMIN 2.2 g/dL (3.4-5.0); ANION GAP 9 mmol/L (5-15); CALCIUM 8.4 mg/dL (8.5-10.1); CHLORIDE 98 mmol/L (98-107)
[2019-07-25 19:54] LABS: ALANINE AMINOTRANSFERASE 48 U/L (12-78); ALKALINE PHOSPHATASE 189 U/L (45-117); BILIRUBIN,TOTAL 0.6 mg/dL (0.2-1.0); CREATININE 1.06 mg/dL (0.55-1.02); TOTAL PROTEIN 6.8 g/dL (6.4-8.2)
[2019-07-25] MEDS ORDERED: ACETAMINOPHEN 500 MG TABLET PO ONE (20:00)
[2019-07-25] MEDS ORDERED: ACETAMINOPHEN 500 MG TABLET ONE (20:10)
[2019-07-25 20:24] LABS: MEAN CORPUSCULAR HEMOGLOBIN 26.9 pg (27.0-34.8); MEAN CORPUSCULAR HGB CONC 33.1 g/dL (32.4-35.8); MEAN PLATELET VOLUME 10.5 fL (7.4-10.4); PLATELET COUNT 309 x10^3/uL (130-400); RED BLOOD COUNT 3.28 x10^6/uL (3.82-5.3); RED CELL DISTRIBUTION WIDTH 16.1 % (9.6-15.2)
--- NOTE | 2019-07-25 20:32 | NUR ---
Patient to CT.
--- NOTE | 2019-07-25 20:53 | NUR ---
THIS RN TO CT FOR US IV. IV PLACED. PT TOLERATED WELL.
[2019-07-25 21:03] LABS: MD YES
[2019-07-25 21:05] LABS: SEG#(MANUAL) 5.33 x10^3/uL (1.8-6.8); SEGS% (MANUAL) 42 % (42-75)
--- NOTE | 2019-07-25 21:06 | NUR ---
Patient returned from CT.
[2019-07-25 21:08] LABS: BAND#(MANUAL) 0.51 x10^3/uL; BANDS%(MANUAL) 4 % (0-7); LYMPH#(MANUAL) 5.59 x10^3/uL (1-3.4); LYMPHS% (MANUAL) 44 % (22-44); MONOS#(MANUAL) 0.64 x10^3/uL (0.3-2.7); MONOS% (MANUAL) 5 % (2-9); NRBC % (MANUAL) 1 % (0-1); REACTIVE LYMPHS # (MANUAL) 0.64 x10^3/uL (0-0); REACTIVE LYMPHS % (MANUAL) 5 % (0-0)
[2019-07-25 21:10] LABS: ANISOCYTOSIS 1+; HYPOCHROMIA 1+; POLYCHROMASIA 1+
[2019-07-25 21:11] LABS: <PLATELET ESTIMATE> ADEQUATE; LARGE PLATELETS 1+
--- NOTE | 2019-07-25 21:55 | NUR ---
TP: REFUSED BY ERIKA AT [facility] AND SHOBHA AT [facility]
[2019-07-25] MEDS ORDERED: SODIUM CHLORIDE 0.9% 100 ML IV SCH (22:00)
[2019-07-25] MEDS ORDERED: SODIUM CHLORIDE 0.9% 1,000ML IVBOLUS ONE (22:00)
--- NOTE | 2019-07-25 22:27 | NUR ---
Report given to SUDHA Smart. Patient to be transferred to room 514.
[2019-07-25] MEDS ORDERED: FLUTICASONE NASAL SPRAY 16GM NAS PRN (22:30)
[2019-07-25] MEDS ORDERED: NITROGLYCERIN 0.4 MG BOTTLE (25 TABS) SL PRN (22:30)
[2019-07-25] MEDS ORDERED: ONDANSETRON ODT 4 MG PO PRN (22:30)
[2019-07-25] MEDS ORDERED: BISACODYL 10 MG SUPP PR PRN (22:30)
[2019-07-25] MEDS ORDERED: GUAIFENESIN/DM 200-20MG, 10ML UDC PO PRN (22:30)
[2019-07-25] MEDS ORDERED: MECLIZINE 12.5 MG TABLET PO PRN (22:30)
[2019-07-25] MEDS ORDERED: POLYETHYLENE GLYCOL 17 GM PACKET PO PRN (22:30)
[2019-07-25 22:52] LABS: MICROSCOPIC INDICATED
[2019-07-25 23:00] LABS: CULTURE INDICATED? NO
[2019-07-25] MEDS ORDERED: PHARMACOKINETIC MONITORING MC PRN (23:00)
[2019-07-25] MEDS ORDERED: PHARMACOKINETIC CONSULTATION MC ONE (23:00)
[2019-07-25] MEDS ORDERED: VANCOMYCIN PER PHARMACY MC PRN (23:00)
[2019-07-25] MEDS ORDERED: VANCOMYCIN 2,300 MG in SODIUM CHLORIDE 0.9% 500 ML IV ONE (23:00)
[2019-07-25] MEDS ORDERED: HEPARIN 5,000 UNITS/ML, 1ML IV ONE (23:30)
[2019-07-25] MEDS: HEPARIN 25,000 UNITS/250ML PMX 250 ML IV PRN (23:48)
[2019-07-25] MEDS: PIPERACILLIN/TAZO/PMX 3.375GM 50 ML IV SCH (23:50)
[2019-07-25] MEDS: INSULIN GLARGINE 100 UNITS/ML, PEN SQ-INSULIN SCH (23:51)
[2019-07-25] MEDS: INSULIN LISPRO 100 UNITS/ML, PEN SQ-INSULIN SCH (23:51)
[2019-07-25] MEDS: morphine SULFATE 10 MG/ML, 1ML IVPush PRN (23:58)
[2019-07-26 00:04] LABS: HCT (SEDRATE) 23.8 % (34.6-47.8)
[2019-07-26 00:26] VITALS: BP 116/73
[2019-07-26 00:30] VITALS: BP 116/73
[2019-07-26] MEDS: ROPINIROLE 1MG TABLET PO SCH ×4 (02:20→21:19)
[2019-07-26] MEDS ORDERED: OMNIPAQUE 350 MG/ML, 100ML BOTTLE ONE (02:55)
[2019-07-26] MEDS: CARVEDILOL 6.25 MG TABLET PO SCH ×2 (05:41→21:20)
[2019-07-26] MEDS: morphine SULFATE 10 MG/ML, 1ML IVPush PRN ×2 (05:42→11:49)
[2019-07-26] MEDS: PIPERACILLIN/TAZO/PMX 3.375GM 50 ML IV SCH ×3 (05:46→20:07)
[2019-07-26 05:59] LABS: MEAN CORPUSCULAR HEMOGLOBIN 26.5 pg (27.0-34.8); MEAN CORPUSCULAR HGB CONC 32.7 g/dL (32.4-35.8); MEAN CORPUSCULAR VOLUME 81.2 fL (80-100); MEAN PLATELET VOLUME 9.3 fL (7.4-10.4); PLATELET COUNT 262 x10^3/uL (130-400); RED BLOOD COUNT 2.93 x10^6/uL (3.82-5.3); RED CELL DISTRIBUTION WIDTH 16.7 % (9.6-15.2)
[2019-07-26 06:14] LABS: ANION GAP 8 mmol/L (5-15); CALCIUM 8.2 mg/dL (8.5-10.1); CHLORIDE 100 mmol/L (98-107)
[2019-07-26 06:15] LABS: CREATININE 0.88 mg/dL (0.55-1.02)
[2019-07-26 06:22] LABS: BASOPHILS # (AUTO) 0.04 x10^3/uL (0-0.1); BASOPHILS % (AUTO) 0 % (0-1); EOSINOPHILS # (AUTO) 0.16 x10^3/uL (0-0.4); EOSINOPHILS % (AUTO) 2 % (1-7); LYMPHOCYTES # (AUTO) 4.96 x10^3/uL (1-3.4); LYMPHOCYTES % (AUTO) 49 % (22-44); MD SCAN; MONOCYTES # (AUTO) 0.52 x10^3/uL (0.2-0.8); MONOCYTES % (AUTO) 5 % (2-9); NEUTROPHILS # (AUTO) 4.54 x10^3/uL (1.8-6.8); NEUTROPHILS % (AUTO) 45 % (42-75)
[2019-07-26 06:41] VITALS: BP 111/75
[2019-07-26] MEDS: HEPARIN 5,000 UNITS/ML, 1ML IV PRN ×3 (07:06→21:29)
[2019-07-26] MEDS: INSULIN LISPRO 100 UNITS/ML, PEN SQ-INSULIN SCH ×4 (08:45→21:21)
[2019-07-26] MEDS: INSULIN GLARGINE 100 UNITS/ML, PEN SQ-INSULIN SCH ×2 (08:45→21:20)
[2019-07-26] MEDS: CITALOPRAM 20 MG TABLET PO SCH (08:46)
[2019-07-26] MEDS: PANTOPRAZOLE 40MG TABLET PO SCH ×2 (08:46→21:20)
[2019-07-26] MEDS: OMEGA-3/FISH OIL CAPSULE PO SCH (08:46)
[2019-07-26] MEDS: CLOPIDOGREL 75 MG TABLET PO SCH (08:46)
[2019-07-26] MEDS: GABAPENTIN 300 MG CAPSULE PO SCH ×3 (08:46→21:19)
[2019-07-26] MEDS: SENNA/DOCUSATE TABLET PO SCH (08:47)
[2019-07-26] MEDS: ACETAMINOPHEN 325 MG TABLET PO PRN (08:49)
[2019-07-26] MEDS ORDERED: metFORMIN 500 MG TABLET PO SCH (09:00)
[2019-07-26] MEDS ORDERED: LISINOPRIL 40 MG TABLET PO SCH (09:00)
[2019-07-26] MEDS ORDERED: ROPINIROLE 1MG TABLET PO SCH (09:00)
[2019-07-26] MEDS ORDERED: INSULIN GLARGINE 100 UNITS/ML, PEN SQ-INSULIN SCH (09:00)
[2019-07-26 14:37] VITALS: BP 100/66
[2019-07-26] MEDS ORDERED: LIDOCAINE/PF 1%-EPI 1:200K, 30 ML ONE (17:17)
[2019-07-26] MEDS ORDERED: BUPIVACAINE/PF-EPI 0.5% 1:200K ONE (17:17)
[2019-07-26] MEDS ORDERED: EPINEPHRINE 1 MG/ML, 1ML ONE (17:21)
[2019-07-26] MEDS ORDERED: BUPIVACAINE/PF 0.25% ONE (17:21)
[2019-07-26] MEDS ORDERED: MIDAZOLAM 1 MG/ML, 2ML ONE (17:26)
[2019-07-26] MEDS ORDERED: FENTANYL PF 100 MCG/2ML ONE (17:38)
[2019-07-26] MEDS ORDERED: ONDANSETRON 2MG/ML, 2ML ONE (18:18)
[2019-07-26] MEDS ORDERED: FENTANYL PF 100 MCG/2ML IV PRN (18:30)
[2019-07-26] MEDS ORDERED: ONDANSETRON 2MG/ML, 2ML IV PRN (18:30)
[2019-07-26 20:25] VITALS: BP 96/65
[2019-07-26] MEDS: FENOFIBRATE 145 MG TABLET PO SCH (21:19)
[2019-07-26] MEDS: ATORVASTATIN 40 MG TABLET PO SCH (21:20)
[2019-07-26] MEDS: HEPARIN 25,000 UNITS/250ML PMX 250 ML IV PRN (21:28)
[2019-07-27] VITALS (11 sets, daily range): BP systolic 88–99; BP diastolic 57–66
[2019-07-27] MEDS: VANCOMYCIN 1,700 MG in SODIUM CHLORIDE 0.9% 250 ML IV SCH (01:01)
[2019-07-27] MEDS: PIPERACILLIN/TAZO/PMX 3.375GM 50 ML IV SCH (02:51)
[2019-07-27 03:54] LABS: BASOPHILS # (AUTO) 0.08 x10^3/uL (0-0.1); BASOPHILS % (AUTO) 1 % (0-1); EOSINOPHILS # (AUTO) 0.13 x10^3/uL (0-0.4); EOSINOPHILS % (AUTO) 1 % (1-7); HCT (SEDRATE) 25.2 % (34.6-47.8); LYMPHOCYTES # (AUTO) 4.61 x10^3/uL (1-3.4); LYMPHOCYTES % (AUTO) 49 % (22-44); MD NO; MEAN CORPUSCULAR HEMOGLOBIN 26.5 pg (27.0-34.8); MEAN CORPUSCULAR HGB CONC 32.7 g/dL (32.4-35.8); MEAN CORPUSCULAR VOLUME 81.1 fL (80-100); MEAN PLATELET VOLUME 9.6 fL (7.4-10.4); MONOCYTES # (AUTO) 0.39 x10^3/uL (0.2-0.8); MONOCYTES % (AUTO) 4 % (2-9); NEUTROPHILS # (AUTO) 4.26 x10^3/uL (1.8-6.8); NEUTROPHILS % (AUTO) 45 % (42-75); PLATELET COUNT 259 x10^3/uL (130-400); RED BLOOD COUNT 3.05 x10^6/uL (3.82-5.3); RED CELL DISTRIBUTION WIDTH 16.5 % (9.6-15.2)
[2019-07-27 04:02] LABS: ANION GAP 10 mmol/L (5-15); CALCIUM 8.2 mg/dL (8.5-10.1); CHLORIDE 101 mmol/L (98-107); CREATININE 1.24 mg/dL (0.55-1.02)
[2019-07-27] MEDS: HEPARIN 5,000 UNITS/ML, 1ML IV PRN ×3 (04:27→18:01)
[2019-07-27] MEDS: INSULIN GLARGINE 100 UNITS/ML, PEN SQ-INSULIN SCH ×2 (08:13→21:22)
[2019-07-27] MEDS: PANTOPRAZOLE 40MG TABLET PO SCH ×2 (08:14→20:46)
[2019-07-27] MEDS: OMEGA-3/FISH OIL CAPSULE PO SCH (08:14)
[2019-07-27] MEDS: SENNA/DOCUSATE TABLET PO SCH (08:14)
[2019-07-27] MEDS: CITALOPRAM 20 MG TABLET PO SCH (08:14)
[2019-07-27] MEDS: ROPINIROLE 1MG TABLET PO SCH ×3 (08:14→20:46)
[2019-07-27] MEDS: CLOPIDOGREL 75 MG TABLET PO SCH (08:14)
[2019-07-27] MEDS: GABAPENTIN 300 MG CAPSULE PO SCH ×3 (08:14→20:46)
[2019-07-27] MEDS: CEFEPIME 2 GM in DEXTROSE 5% 100 ML IV SCH ×2 (08:21→20:47)
[2019-07-27] MEDS: METRONIDAZOLE PMX 500MG/100ML 100 ML IV SCH ×2 (09:22→17:37)
[2019-07-27] MEDS: INSULIN LISPRO 100 UNITS/ML, PEN SQ-INSULIN SCH ×4 (09:51→21:22)
[2019-07-27] MEDS: HEPARIN 25,000 UNITS/250ML PMX 250 ML IV PRN (13:32)
[2019-07-27] MEDS ORDERED: SODIUM CHLORIDE 0.9%, 250ML IVBOLUS ONE (16:30)
[2019-07-27] MEDS: CARVEDILOL 6.25 MG TABLET PO SCH (17:34)
[2019-07-27] MEDS: ATORVASTATIN 40 MG TABLET PO SCH (20:46)
[2019-07-27] MEDS: FENOFIBRATE 145 MG TABLET PO SCH (20:46)
[2019-07-28] VITALS (10 sets, daily range): BP systolic 97–142; BP diastolic 57–83
[2019-07-28] MEDS: VANCOMYCIN 1,700 MG in SODIUM CHLORIDE 0.9% 250 ML IV SCH (00:10)
[2019-07-28] MEDS: HEPARIN 25,000 UNITS/250ML PMX 250 ML IV PRN (02:48)
[2019-07-28] MEDS: METRONIDAZOLE PMX 500MG/100ML 100 ML IV SCH ×3 (04:00→20:19)
[2019-07-28] MEDS: CARVEDILOL 6.25 MG TABLET PO SCH ×2 (06:00→18:00)
[2019-07-28] MEDS: INSULIN LISPRO 100 UNITS/ML, PEN SQ-INSULIN SCH ×4 (07:30→20:20)
[2019-07-28 07:45] LABS: ANION GAP 12 mmol/L (5-15); CHLORIDE 103 mmol/L (98-107); CREATININE 2.04 mg/dL (0.55-1.02)
[2019-07-28 07:46] LABS: MEAN CORPUSCULAR HEMOGLOBIN 26.4 pg (27.0-34.8); MEAN CORPUSCULAR VOLUME 82.4 fL (80-100); MEAN PLATELET VOLUME 9.6 fL (7.4-10.4); PLATELET COUNT 287 x10^3/uL (130-400); RED BLOOD COUNT 3.17 x10^6/uL (3.82-5.3); RED CELL DISTRIBUTION WIDTH 16.5 % (9.6-15.2)
[2019-07-28 08:31] LABS: BASOPHILS # (AUTO) 0.02 x10^3/uL (0-0.1); BASOPHILS % (AUTO) 0 % (0-1); EOSINOPHILS # (AUTO) 0.12 x10^3/uL (0-0.4); EOSINOPHILS % (AUTO) 1 % (1-7); LYMPHOCYTES % (AUTO) 58 % (22-44); MD MORPH REVIEW ONLY; MONOCYTES # (AUTO) 0.56 x10^3/uL (0.2-0.8); MONOCYTES % (AUTO) 5 % (2-9); NEUTROPHILS # (AUTO) 4.15 x10^3/uL (1.8-6.8); NEUTROPHILS % (AUTO) 36 % (42-75)
[2019-07-28 08:32] LABS: ANISOCYTOSIS 1+
[2019-07-28 08:33] LABS: <PLATELET ESTIMATE> ADEQUATE; GIANT PLATELETS 1+; LARGE PLATELETS 1+
[2019-07-28] MEDS: ROPINIROLE 1MG TABLET PO SCH ×3 (08:55→20:19)
[2019-07-28] MEDS: CEFEPIME 2 GM in DEXTROSE 5% 100 ML IV SCH (08:55)
[2019-07-28] MEDS: OMEGA-3/FISH OIL CAPSULE PO SCH (08:56)
[2019-07-28] MEDS: SENNA/DOCUSATE TABLET PO SCH (08:56)
[2019-07-28] MEDS: GABAPENTIN 300 MG CAPSULE PO SCH ×3 (08:56→20:18)
[2019-07-28] MEDS: PANTOPRAZOLE 40MG TABLET PO SCH ×2 (08:56→20:18)
[2019-07-28] MEDS: CITALOPRAM 20 MG TABLET PO SCH (08:56)
[2019-07-28] MEDS: CLOPIDOGREL 75 MG TABLET PO SCH (08:56)
[2019-07-28] MEDS: INSULIN GLARGINE 100 UNITS/ML, PEN SQ-INSULIN SCH ×2 (09:04→20:20)
[2019-07-28] MEDS: SODIUM CHLORIDE 0.9% 1,000 ML IV SCH ×2 (12:48→20:23)
[2019-07-28] MEDS ORDERED: FENTANYL PF 100 MCG/2ML ONE (13:32)
[2019-07-28] MEDS ORDERED: HEPARIN 1,000 UNITS/ML, 10ML ONE (13:32)
[2019-07-28] MEDS ORDERED: VERAPAMIL 2.5 MG/ML, 2ML ONE (13:32)
[2019-07-28] MEDS ORDERED: FENTANYL PF 250 MCG/5ML ONE (13:32)
[2019-07-28] MEDS ORDERED: LIDOCAINE 1%, 20ML ONE (13:32)
[2019-07-28] MEDS ORDERED: MIDAZOLAM 1 MG/ML, 5ML ONE (13:33)
[2019-07-28] MEDS ORDERED: BIVALIRUDIN 250 MG ONE (13:51)
[2019-07-28] MEDS ORDERED: SODIUM CHLORIDE 0.9% 1,000 ML IV SCH (15:10)
[2019-07-28] MEDS ORDERED: GADOTERATE 10 MMOL/20 ML SYR ONE (17:31)
[2019-07-28] MEDS: FENOFIBRATE 145 MG TABLET PO SCH (20:18)
[2019-07-28] MEDS: ATORVASTATIN 40 MG TABLET PO SCH (20:19)
[2019-07-28 22:45] LABS: OCCULT BLOOD NEGATIVE (NEGATIVE)
[2019-07-29] VITALS (7 sets, daily range): BP systolic 116–158; BP diastolic 72–82
[2019-07-29] MEDS: METRONIDAZOLE PMX 500MG/100ML 100 ML IV SCH (05:15)
[2019-07-29 05:29] LABS: OCCULT BLOOD NEGATIVE (NEGATIVE)
[2019-07-29] MEDS: CARVEDILOL 6.25 MG TABLET PO SCH ×2 (06:00→18:12)
[2019-07-29 06:09] LABS: ANION GAP 11 mmol/L (5-15); CALCIUM 8.1 mg/dL (8.5-10.1); CHLORIDE 105 mmol/L (98-107)
[2019-07-29 06:11] LABS: MEAN CORPUSCULAR HEMOGLOBIN 27.3 pg (27.0-34.8); MEAN CORPUSCULAR HGB CONC 32.4 g/dL (32.4-35.8); MEAN CORPUSCULAR VOLUME 84.1 fL (80-100); MEAN PLATELET VOLUME 9.9 fL (7.4-10.4); PLATELET COUNT 237 x10^3/uL (130-400); RED BLOOD COUNT 3.48 x10^6/uL (3.82-5.3)
[2019-07-29 06:12] LABS: CREATININE 2.04 mg/dL (0.55-1.02); VANCOMYCIN,RANDOM 20.6 mcg/mL
[2019-07-29 06:28] LABS: MD YES
[2019-07-29 06:31] LABS: EOS#(MANUAL) 0.15 x10^3/uL (0.0-0.4); EOS% (MANUAL) 2 % (1-7); LYMPH#(MANUAL) 3.88 x10^3/uL (1-3.4); LYMPHS% (MANUAL) 51 % (22-44); MONOS% (MANUAL) 4 % (2-9); SEG#(MANUAL) 3.27 x10^3/uL (1.8-6.8); SEGS% (MANUAL) 43 % (42-75)
[2019-07-29 06:32] LABS: <PLATELET ESTIMATE> ADEQUATE; ANISOCYTOSIS 1+; LARGE PLATELETS 1+
[2019-07-29] MEDS: INSULIN LISPRO 100 UNITS/ML, PEN SQ-INSULIN SCH ×4 (07:00→21:00)
[2019-07-29] MEDS: INSULIN GLARGINE 100 UNITS/ML, PEN SQ-INSULIN SCH ×2 (08:22→21:56)
[2019-07-29] MEDS: CITALOPRAM 20 MG TABLET PO SCH (08:24)
[2019-07-29] MEDS: FERROUS SULFATE 325 MG TABLET PO SCH ×2 (08:24→17:02)
[2019-07-29] MEDS: CLOPIDOGREL 75 MG TABLET PO SCH (08:24)
[2019-07-29] MEDS: ROPINIROLE 1MG TABLET PO SCH ×2 (08:24→17:02)
[2019-07-29] MEDS: PANTOPRAZOLE 40MG TABLET PO SCH ×2 (08:25→21:56)
[2019-07-29] MEDS: GABAPENTIN 300 MG CAPSULE PO SCH ×3 (08:25→21:56)
[2019-07-29] MEDS: SENNA/DOCUSATE TABLET PO SCH (08:25)
[2019-07-29] MEDS: OMEGA-3/FISH OIL CAPSULE PO SCH (08:25)
[2019-07-29 08:47] LABS: OCCULT BLOOD NEGATIVE (NEGATIVE)
[2019-07-29] MEDS ORDERED: CEFEPIME 2 GM in DEXTROSE 5% 100 ML IV SCH (09:00)
[2019-07-29] MEDS: SODIUM CHLORIDE 0.9% 1,000 ML IV SCH (09:32)
[2019-07-29] MEDS ORDERED: VANCOMYCIN 1,500 MG in SODIUM CHLORIDE 0.9% 250 ML IV ONE (16:00)
[2019-07-29] MEDS: DAPTOMYCIN 600 MG in SODIUM CHLORIDE 0.9% 100 ML IVPB SCH (17:03)
[2019-07-29] MEDS: FENOFIBRATE 145 MG TABLET PO SCH (21:56)
[2019-07-30] MEDS: ROPINIROLE 1MG TABLET PO SCH ×4 (01:12→21:30)
[2019-07-30] MEDS: SODIUM CHLORIDE 0.9% 1,000 ML IV SCH ×2 (01:12→13:42)
[2019-07-30 01:22] VITALS: BP 108/70
[2019-07-30 04:25] LABS: HCT (SEDRATE) 29.8 % (34.6-47.8)
[2019-07-30 04:35] LABS: ANION GAP 7 mmol/L (5-15); CHLORIDE 106 mmol/L (98-107); CREATININE 1.83 mg/dL (0.55-1.02)
[2019-07-30 04:42] LABS: CREATINE KINASE, TOTAL 29 U/L (26-192)
[2019-07-30] MEDS: CARVEDILOL 6.25 MG TABLET PO SCH ×2 (06:00→17:24)
[2019-07-30] MEDS: INSULIN LISPRO 100 UNITS/ML, PEN SQ-INSULIN SCH ×4 (07:00→21:31)
[2019-07-30 07:54] VITALS: BP 114/72
[2019-07-30] MEDS: OMEGA-3/FISH OIL CAPSULE PO SCH (08:08)
[2019-07-30] MEDS: GABAPENTIN 300 MG CAPSULE PO SCH ×3 (08:09→21:30)
[2019-07-30] MEDS: CLOPIDOGREL 75 MG TABLET PO SCH (08:09)
[2019-07-30] MEDS: PANTOPRAZOLE 40MG TABLET PO SCH ×2 (08:09→21:30)
[2019-07-30] MEDS: CITALOPRAM 20 MG TABLET PO SCH (08:09)
[2019-07-30] MEDS: FERROUS SULFATE 325 MG TABLET PO SCH ×2 (08:09→15:57)
[2019-07-30] MEDS: INSULIN GLARGINE 100 UNITS/ML, PEN SQ-INSULIN SCH ×2 (08:10→21:31)
[2019-07-30] MEDS: SENNA/DOCUSATE TABLET PO SCH (08:10)
[2019-07-30] MEDS ORDERED: SODIUM CHLORIDE 0.9% 1,000 ML IV SCH (11:00)
[2019-07-30 14:24] VITALS: BP 131/80
[2019-07-30] MEDS: DAPTOMYCIN 600 MG in SODIUM CHLORIDE 0.9% 100 ML IVPB SCH (16:44)
[2019-07-30 19:02] VITALS: BP 131/74
[2019-07-30] MEDS: FENOFIBRATE 145 MG TABLET PO SCH (21:30)
[2019-07-31] MEDS: ACETAMINOPHEN 325 MG TABLET PO PRN (00:27)
[2019-07-31 01:26] VITALS: BP 128/76
[2019-07-31] MEDS: SODIUM CHLORIDE 0.9% 1,000 ML IV SCH ×3 (04:30→19:30)
[2019-07-31 05:05] LABS: ANION GAP 7 mmol/L (5-15); CALCIUM 7.9 mg/dL (8.5-10.1); CHLORIDE 111 mmol/L (98-107)
[2019-07-31 05:10] LABS: MEAN CORPUSCULAR HEMOGLOBIN 26.7 pg (27.0-34.8); MEAN CORPUSCULAR HGB CONC 32.2 g/dL (32.4-35.8); MEAN CORPUSCULAR VOLUME 83.1 fL (80-100); MEAN PLATELET VOLUME 9.2 fL (7.4-10.4); PLATELET COUNT 245 x10^3/uL (130-400); RED CELL DISTRIBUTION WIDTH 17.5 % (9.6-15.2)
[2019-07-31 05:31] VITALS: BP 135/81
[2019-07-31] MEDS: CARVEDILOL 6.25 MG TABLET PO SCH ×2 (05:35→18:44)
[2019-07-31 06:05] LABS: BASOPHILS # (AUTO) 0.02 x10^3/uL (0-0.1); BASOPHILS % (AUTO) 0 % (0-1); EOSINOPHILS # (AUTO) 0.09 x10^3/uL (0-0.4); EOSINOPHILS % (AUTO) 1 % (1-7); LYMPHOCYTES # (AUTO) 5.56 x10^3/uL (1-3.4); LYMPHOCYTES % (AUTO) 66 % (22-44); MD SCAN; MONOCYTES # (AUTO) 0.34 x10^3/uL (0.2-0.8); MONOCYTES % (AUTO) 4 % (2-9); NEUTROPHILS # (AUTO) 2.46 x10^3/uL (1.8-6.8); NEUTROPHILS % (AUTO) 29 % (42-75)
[2019-07-31] MEDS: INSULIN LISPRO 100 UNITS/ML, PEN SQ-INSULIN SCH ×4 (07:00→21:00)
[2019-07-31 07:06] VITALS: BP 139/87
[2019-07-31] MEDS: GABAPENTIN 300 MG CAPSULE PO SCH ×3 (08:33→21:19)
[2019-07-31] MEDS: ROPINIROLE 1MG TABLET PO SCH ×3 (08:33→21:19)
[2019-07-31] MEDS: OMEGA-3/FISH OIL CAPSULE PO SCH (08:34)
[2019-07-31] MEDS: FERROUS SULFATE 325 MG TABLET PO SCH ×2 (08:34→18:44)
[2019-07-31] MEDS: CITALOPRAM 20 MG TABLET PO SCH (08:34)
[2019-07-31] MEDS: PANTOPRAZOLE 40MG TABLET PO SCH ×2 (08:34→21:19)
[2019-07-31] MEDS: CLOPIDOGREL 75 MG TABLET PO SCH (08:35)
[2019-07-31] MEDS: SENNA/DOCUSATE TABLET PO SCH (08:36)
[2019-07-31] MEDS: INSULIN GLARGINE 100 UNITS/ML, PEN SQ-INSULIN SCH ×2 (08:49→21:20)
[2019-07-31 13:30] VITALS: BP 142/84
[2019-07-31] MEDS: DAPTOMYCIN 600 MG in SODIUM CHLORIDE 0.9% 100 ML IVPB SCH (15:49)
[2019-07-31] MEDS ORDERED: metroNIDAZOLE 500 MG TABLET PO SCH (16:00)
[2019-07-31] MEDS ORDERED: METRONIDAZOLE PMX 500MG/100ML 100 ML ONE (16:20)
[2019-07-31] MEDS ORDERED: LIDOCAINE 1%-EPI 1:100K, 20ML ONE (16:20)
[2019-07-31] MEDS ORDERED: MIDAZOLAM 1 MG/ML, 2ML ONE (16:28)
[2019-07-31] MEDS ORDERED: FENTANYL PF 100 MCG/2ML ONE (16:28)
[2019-07-31] MEDS ORDERED: BUPIVACAINE/PF-EPI 0.5% 1:200K ONE (16:28)
[2019-07-31] MEDS ORDERED: ACETAMINOPHEN 325 MG TABLET PO PRN (17:30)
[2019-07-31] MEDS ORDERED: FENTANYL PF 100 MCG/2ML IV PRN (17:30)
[2019-07-31] MEDS ORDERED: METRONIDAZOLE PMX 500MG/100ML 100 ML IV ONE (18:00)
[2019-07-31 19:38] VITALS: BP 138/85
[2019-07-31] MEDS ORDERED: ATORVASTATIN 40 MG TABLET PO SCH (21:00)
[2019-07-31] MEDS: FENOFIBRATE 145 MG TABLET PO SCH (21:19)
[2019-07-31] MEDS: metroNIDAZOLE 500 MG TABLET PO SCH (21:19)
[2019-08-01 01:29] VITALS: BP 140/78
[2019-08-01] MEDS: SODIUM CHLORIDE 0.9% 1,000 ML IV SCH (04:22)
[2019-08-01 05:38] VITALS: BP 155/92
[2019-08-01] MEDS: CARVEDILOL 6.25 MG TABLET PO SCH ×2 (05:39→17:40)
[2019-08-01 05:59] LABS: BASOPHILS # (AUTO) 0.02 x10^3/uL (0-0.1); BASOPHILS % (AUTO) 0 % (0-1); EOSINOPHILS # (AUTO) 0.12 x10^3/uL (0-0.4); EOSINOPHILS % (AUTO) 1 % (1-7); LYMPHOCYTES # (AUTO) 4.26 x10^3/uL (1-3.4); LYMPHOCYTES % (AUTO) 53 % (22-44); MD NO; MEAN CORPUSCULAR HEMOGLOBIN 26.8 pg (27.0-34.8); MEAN CORPUSCULAR VOLUME 83.6 fL (80-100); MEAN PLATELET VOLUME 8.8 fL (7.4-10.4); MONOCYTES # (AUTO) 0.38 x10^3/uL (0.2-0.8); MONOCYTES % (AUTO) 5 % (2-9); NEUTROPHILS # (AUTO) 3.33 x10^3/uL (1.8-6.8); NEUTROPHILS % (AUTO) 41 % (42-75); PLATELET COUNT 277 x10^3/uL (130-400); RED BLOOD COUNT 3.58 x10^6/uL (3.82-5.3); RED CELL DISTRIBUTION WIDTH 17.2 % (9.6-15.2)
[2019-08-01 06:07] LABS: ANION GAP 8 mmol/L (5-15); CALCIUM 8.6 mg/dL (8.5-10.1); CHLORIDE 113 mmol/L (98-107)
[2019-08-01 06:10] LABS: CREATININE 1.52 mg/dL (0.55-1.02)
[2019-08-01] MEDS: INSULIN LISPRO 100 UNITS/ML, PEN SQ-INSULIN SCH ×4 (07:00→21:00)
[2019-08-01 07:09] VITALS: BP 144/83
[2019-08-01] MEDS: CLOPIDOGREL 75 MG TABLET PO SCH (08:51)
[2019-08-01] MEDS: OMEGA-3/FISH OIL CAPSULE PO SCH (08:51)
[2019-08-01] MEDS: FERROUS SULFATE 325 MG TABLET PO SCH ×2 (08:51→16:32)
[2019-08-01] MEDS: metroNIDAZOLE 500 MG TABLET PO SCH ×3 (08:52→22:22)
[2019-08-01] MEDS: ROPINIROLE 1MG TABLET PO SCH ×3 (08:52→22:23)
[2019-08-01] MEDS: CITALOPRAM 20 MG TABLET PO SCH (08:52)
[2019-08-01] MEDS: GABAPENTIN 300 MG CAPSULE PO SCH ×3 (08:52→22:23)
[2019-08-01] MEDS: PANTOPRAZOLE 40MG TABLET PO SCH ×2 (08:52→22:23)
[2019-08-01] MEDS: SENNA/DOCUSATE TABLET PO SCH (08:53)
[2019-08-01] MEDS: INSULIN GLARGINE 100 UNITS/ML, PEN SQ-INSULIN SCH ×2 (08:59→22:24)
[2019-08-01 12:26] VITALS: BP 160/92
[2019-08-01] MEDS: morphine SULFATE 10 MG/ML, 1ML IVPush PRN ×3 (12:29→22:25)
[2019-08-01] MEDS: DAPTOMYCIN 600 MG in SODIUM CHLORIDE 0.9% 100 ML IVPB SCH (16:08)
[2019-08-01 19:52] VITALS: BP 132/75
[2019-08-01] MEDS: FENOFIBRATE 145 MG TABLET PO SCH (22:23)
[2019-08-02 01:29] VITALS: BP 145/87
[2019-08-02 04:31] LABS: MEAN CORPUSCULAR HEMOGLOBIN 26.9 pg (27.0-34.8); MEAN CORPUSCULAR HGB CONC 32.1 g/dL (32.4-35.8); MEAN CORPUSCULAR VOLUME 83.8 fL (80-100); MEAN PLATELET VOLUME 8.4 fL (7.4-10.4); PLATELET COUNT 286 x10^3/uL (130-400); RED BLOOD COUNT 3.43 x10^6/uL (3.82-5.3); RED CELL DISTRIBUTION WIDTH 17.3 % (9.6-15.2)
[2019-08-02 04:41] LABS: ANION GAP 7 mmol/L (5-15); CALCIUM 8.5 mg/dL (8.5-10.1); CHLORIDE 112 mmol/L (98-107); CREATININE 1.42 mg/dL (0.55-1.02)
[2019-08-02 05:08] LABS: MD YES
[2019-08-02 05:10] LABS: EOS#(MANUAL) 0.16 x10^3/uL (0.0-0.4); EOS% (MANUAL) 2 % (1-7); LYMPH#(MANUAL) 3.32 x10^3/uL (1-3.4); LYMPHS% (MANUAL) 42 % (22-44); MONOS#(MANUAL) 0.08 x10^3/uL (0.3-2.7); MONOS% (MANUAL) 1 % (2-9); REACTIVE LYMPHS # (MANUAL) 1.58 x10^3/uL (0-0); REACTIVE LYMPHS % (MANUAL) 20 % (0-0); SEG#(MANUAL) 2.77 x10^3/uL (1.8-6.8); SEGS% (MANUAL) 35 % (42-75)
[2019-08-02 05:11] LABS: <PLATELET ESTIMATE> ADEQUATE; ANISOCYTOSIS 1+; LARGE PLATELETS 1+; POLYCHROMASIA 1+
[2019-08-02] MEDS: CARVEDILOL 6.25 MG TABLET PO SCH ×2 (06:40→17:15)
[2019-08-02 06:42] VITALS: BP 129/84
[2019-08-02] MEDS: INSULIN LISPRO 100 UNITS/ML, PEN SQ-INSULIN SCH ×4 (07:00→20:55)
[2019-08-02 07:59] VITALS: BP 143/83
[2019-08-02] MEDS: INSULIN GLARGINE 100 UNITS/ML, PEN SQ-INSULIN SCH ×2 (08:31→20:55)
[2019-08-02] MEDS: CITALOPRAM 20 MG TABLET PO SCH (08:31)
[2019-08-02] MEDS: OMEGA-3/FISH OIL CAPSULE PO SCH (08:31)
[2019-08-02] MEDS: metroNIDAZOLE 500 MG TABLET PO SCH ×3 (08:32→20:54)
[2019-08-02] MEDS: PANTOPRAZOLE 40MG TABLET PO SCH ×2 (08:32→20:54)
[2019-08-02] MEDS: GABAPENTIN 300 MG CAPSULE PO SCH ×3 (08:32→20:54)
[2019-08-02] MEDS: ROPINIROLE 1MG TABLET PO SCH ×3 (08:32→20:54)
[2019-08-02] MEDS: FERROUS SULFATE 325 MG TABLET PO SCH ×2 (08:32→17:15)
[2019-08-02] MEDS: CLOPIDOGREL 75 MG TABLET PO SCH (08:32)
[2019-08-02] MEDS: SENNA/DOCUSATE TABLET PO SCH (08:33)
[2019-08-02] MEDS ORDERED: FLUCONAZOLE 100 MG TABLET PO SCH (09:00)
[2019-08-02 14:45] VITALS: BP 136/79
[2019-08-02] MEDS: DAPTOMYCIN 600 MG in SODIUM CHLORIDE 0.9% 100 ML IVPB SCH (15:53)
[2019-08-02 19:19] VITALS: BP 144/85
[2019-08-02] MEDS: FENOFIBRATE 145 MG TABLET PO SCH (20:54)
[2019-08-03 01:54] VITALS: BP 130/80
[2019-08-03] MEDS: CARVEDILOL 6.25 MG TABLET PO SCH ×2 (05:21→17:00)
[2019-08-03 06:05] LABS: CALCIUM 8.9 mg/dL (8.5-10.1); CHLORIDE 109 mmol/L (98-107)
[2019-08-03 06:09] LABS: ANION GAP 7 mmol/L (5-15); CREATININE 1.56 mg/dL (0.55-1.02)
[2019-08-03 06:15] LABS: MEAN CORPUSCULAR HEMOGLOBIN 26.7 pg (27.0-34.8); MEAN CORPUSCULAR HGB CONC 32.1 g/dL (32.4-35.8); MEAN PLATELET VOLUME 8.3 fL (7.4-10.4); PLATELET COUNT 318 x10^3/uL (130-400); RED CELL DISTRIBUTION WIDTH 17.4 % (9.6-15.2)
[2019-08-03 06:31] LABS: MD YES
[2019-08-03 06:41] LABS: BAND#(MANUAL) 0.11 x10^3/uL; BANDS%(MANUAL) 1 % (0-7); EOS#(MANUAL) 0.11 x10^3/uL (0.0-0.4); EOS% (MANUAL) 1 % (1-7); LYMPH#(MANUAL) 5.14 x10^3/uL (1-3.4); LYMPHS% (MANUAL) 48 % (22-44); MONOS#(MANUAL) 0.75 x10^3/uL (0.3-2.7); MONOS% (MANUAL) 7 % (2-9); REACTIVE LYMPHS # (MANUAL) 2.25 x10^3/uL (0-0); REACTIVE LYMPHS % (MANUAL) 21 % (0-0); SEG#(MANUAL) 2.35 x10^3/uL (1.8-6.8); SEGS% (MANUAL) 22 % (42-75)
[2019-08-03 06:42] LABS: <PLATELET ESTIMATE> ADEQUATE; <PLT MORPHOLOGY> NORMAL PLT MORPH; ANISOCYTOSIS 1+; POLYCHROMASIA 1+
[2019-08-03] MEDS: INSULIN LISPRO 100 UNITS/ML, PEN SQ-INSULIN SCH ×4 (07:00→23:01)
[2019-08-03 07:05] VITALS: BP 125/81
[2019-08-03] MEDS: OMEGA-3/FISH OIL CAPSULE PO SCH (08:23)
[2019-08-03] MEDS: GABAPENTIN 300 MG CAPSULE PO SCH ×3 (08:23→22:48)
[2019-08-03] MEDS: PANTOPRAZOLE 40MG TABLET PO SCH ×2 (08:23→22:48)
[2019-08-03] MEDS: FERROUS SULFATE 325 MG TABLET PO SCH ×2 (08:24→16:59)
[2019-08-03] MEDS: CITALOPRAM 20 MG TABLET PO SCH (08:24)
[2019-08-03] MEDS: CLOPIDOGREL 75 MG TABLET PO SCH (08:24)
[2019-08-03] MEDS: ROPINIROLE 1MG TABLET PO SCH ×3 (08:24→22:48)
[2019-08-03] MEDS: metroNIDAZOLE 500 MG TABLET PO SCH ×3 (08:26→22:48)
[2019-08-03] MEDS: INSULIN GLARGINE 100 UNITS/ML, PEN SQ-INSULIN SCH ×2 (08:27→23:00)
[2019-08-03] MEDS: SENNA/DOCUSATE TABLET PO SCH (08:27)
[2019-08-03 13:42] VITALS: BP 145/83
[2019-08-03] MEDS: DAPTOMYCIN 600 MG in SODIUM CHLORIDE 0.9% 100 ML IVPB SCH (15:41)
[2019-08-03 19:10] VITALS: BP 143/76
[2019-08-03] MEDS: FENOFIBRATE 145 MG TABLET PO SCH (22:48)
[2019-08-04 00:03] VITALS: BP_SYST 160; BP_SYST 162; BP_DIAS 85; BP_DIAS 93
[2019-08-04 05:15] VITALS: BP 160/96
[2019-08-04] MEDS: CARVEDILOL 6.25 MG TABLET PO SCH ×2 (05:16→18:18)
[2019-08-04 05:54] LABS: ALANINE AMINOTRANSFERASE 8 U/L (12-78); ALBUMIN 2.2 g/dL (3.4-5.0); ANION GAP 7 mmol/L (5-15); CALCIUM 8.9 mg/dL (8.5-10.1); CHLORIDE 108 mmol/L (98-107)
[2019-08-04 05:56] LABS: MEAN CORPUSCULAR HEMOGLOBIN 26.8 pg (27.0-34.8); MEAN CORPUSCULAR HGB CONC 32.4 g/dL (32.4-35.8); MEAN CORPUSCULAR VOLUME 82.8 fL (80-100); MEAN PLATELET VOLUME 8.4 fL (7.4-10.4); PLATELET COUNT 321 x10^3/uL (130-400); RED BLOOD COUNT 3.67 x10^6/uL (3.82-5.3); RED CELL DISTRIBUTION WIDTH 17.6 % (9.6-15.2)
[2019-08-04 05:58] LABS: HCT (SEDRATE) 30.3 % (34.6-47.8)
[2019-08-04 06:03] LABS: ALKALINE PHOSPHATASE 84 U/L (45-117); BILIRUBIN,TOTAL 0.5 mg/dL (0.2-1.0); CREATINE KINASE, TOTAL 23 U/L (26-192); CREATININE 1.44 mg/dL (0.55-1.02); TOTAL PROTEIN 6.7 g/dL (6.4-8.2)
[2019-08-04 06:35] LABS: MD YES
[2019-08-04 06:36] LABS: EOS% (MANUAL) 2 % (1-7); LYMPH#(MANUAL) 5.51 x10^3/uL (1-3.4); LYMPHS% (MANUAL) 54 % (22-44); MONOS#(MANUAL) 0.41 x10^3/uL (0.3-2.7); MONOS% (MANUAL) 4 % (2-9); REACTIVE LYMPHS # (MANUAL) 0.31 x10^3/uL (0-0); REACTIVE LYMPHS % (MANUAL) 3 % (0-0); SEG#(MANUAL) 3.77 x10^3/uL (1.8-6.8); SEGS% (MANUAL) 37 % (42-75)
[2019-08-04 06:37] LABS: <PLATELET ESTIMATE> ADEQUATE; <PLT MORPHOLOGY> NORMAL PLT MORPH; ANISOCYTOSIS 1+; POLYCHROMASIA 1+
[2019-08-04 06:54] VITALS: BP 158/93
[2019-08-04] MEDS: INSULIN LISPRO 100 UNITS/ML, PEN SQ-INSULIN SCH ×4 (07:00→21:24)
[2019-08-04] MEDS: FERROUS SULFATE 325 MG TABLET PO SCH ×2 (08:00→16:41)
[2019-08-04] MEDS: OMEGA-3/FISH OIL CAPSULE PO SCH (09:00)
[2019-08-04] MEDS: INSULIN GLARGINE 100 UNITS/ML, PEN SQ-INSULIN SCH ×2 (09:00→21:24)
[2019-08-04] MEDS: SENNA/DOCUSATE TABLET PO SCH (09:00)
[2019-08-04] MEDS ORDERED: FUROSEMIDE 40 MG/4 ML ONE (09:03)
[2019-08-04] MEDS ORDERED: FUROSEMIDE 40 MG/4 ML IV ONE (09:30)
[2019-08-04] MEDS: HEPARIN 5,000 UNITS/ML, 1ML SQ SCH ×2 (10:35→16:41)
[2019-08-04] MEDS: metroNIDAZOLE 500 MG TABLET PO SCH (10:36)
[2019-08-04] MEDS: GABAPENTIN 300 MG CAPSULE PO SCH ×3 (10:36→21:18)
[2019-08-04] MEDS: ROPINIROLE 1MG TABLET PO SCH ×3 (10:36→21:18)
[2019-08-04] MEDS: PANTOPRAZOLE 40MG TABLET PO SCH ×2 (10:36→21:18)
[2019-08-04] MEDS: CITALOPRAM 20 MG TABLET PO SCH (10:36)
[2019-08-04] MEDS: CLOPIDOGREL 75 MG TABLET PO SCH (10:36)
[2019-08-04] MEDS: CEFEPIME 1 GM in DEXTROSE 5% 50 ML IV SCH ×2 (11:57→20:06)
[2019-08-04 14:06] LABS: TROPONIN I 0.191 ng/mL (0.000-0.045)
[2019-08-04 14:30] LABS: CULTURE INDICATED? YES; MICROSCOPIC INDICATED
[2019-08-04] MEDS: FUROSEMIDE 40 MG/4 ML IV SCH (16:40)
[2019-08-04] MEDS: DAPTOMYCIN 600 MG in SODIUM CHLORIDE 0.9% 100 ML IVPB SCH (17:34)
[2019-08-04] MEDS: ACETAMINOPHEN 325 MG TABLET PO PRN (21:18)
[2019-08-04] MEDS: FENOFIBRATE 145 MG TABLET PO SCH (21:18)
[2019-08-05] MEDS: HEPARIN 5,000 UNITS/ML, 1ML SQ SCH ×3 (00:58→17:04)
[2019-08-05] MEDS: CEFEPIME 1 GM in DEXTROSE 5% 50 ML IV SCH ×3 (04:11→19:49)
[2019-08-05 04:22] LABS: BASOPHILS # (AUTO) 0.09 x10^3/uL (0-0.1); BASOPHILS % (AUTO) 1 % (0-1); EOSINOPHILS # (AUTO) 0.04 x10^3/uL (0-0.4); EOSINOPHILS % (AUTO) 0 % (1-7); LYMPHOCYTES # (AUTO) 4.91 x10^3/uL (1-3.4); LYMPHOCYTES % (AUTO) 43 % (22-44); MD NO; MEAN CORPUSCULAR HEMOGLOBIN 26.5 pg (27.0-34.8); MEAN CORPUSCULAR HGB CONC 32.2 g/dL (32.4-35.8); MEAN CORPUSCULAR VOLUME 82.2 fL (80-100); MEAN PLATELET VOLUME 8.2 fL (7.4-10.4); MONOCYTES % (AUTO) 5 % (2-9); NEUTROPHILS # (AUTO) 5.75 x10^3/uL (1.8-6.8); NEUTROPHILS % (AUTO) 51 % (42-75); PLATELET COUNT 287 x10^3/uL (130-400); RED BLOOD COUNT 3.31 x10^6/uL (3.82-5.3); RED CELL DISTRIBUTION WIDTH 17.4 % (9.6-15.2)
[2019-08-05 04:31] LABS: ANION GAP 7 mmol/L (5-15); CALCIUM 8.7 mg/dL (8.5-10.1); CHLORIDE 108 mmol/L (98-107); CREATININE 1.53 mg/dL (0.55-1.02)
[2019-08-05 05:00] VITALS: BP 115/65
[2019-08-05] MEDS: CARVEDILOL 6.25 MG TABLET PO SCH ×2 (06:08→17:05)
[2019-08-05] MEDS: INSULIN LISPRO 100 UNITS/ML, PEN SQ-INSULIN SCH ×4 (07:00→20:09)
[2019-08-05] MEDS: INSULIN GLARGINE 100 UNITS/ML, PEN SQ-INSULIN SCH ×2 (09:00→20:09)
[2019-08-05] MEDS: SENNA/DOCUSATE TABLET PO SCH (09:00)
[2019-08-05] MEDS: MODAFINIL 100 MG TABLET PO SCH (09:14)
[2019-08-05] MEDS: ROPINIROLE 1MG TABLET PO SCH ×3 (09:14→20:08)
[2019-08-05] MEDS: FERROUS SULFATE 325 MG TABLET PO SCH ×2 (09:14→17:04)
[2019-08-05] MEDS: PANTOPRAZOLE 40MG TABLET PO SCH ×2 (09:14→20:08)
[2019-08-05] MEDS: CLOPIDOGREL 75 MG TABLET PO SCH (09:14)
[2019-08-05] MEDS: GABAPENTIN 300 MG CAPSULE PO SCH ×3 (09:14→20:08)
[2019-08-05] MEDS: FUROSEMIDE 40 MG/4 ML IV SCH ×2 (09:14→17:04)
[2019-08-05] MEDS: CITALOPRAM 20 MG TABLET PO SCH (09:14)
[2019-08-05] MEDS: OMEGA-3/FISH OIL CAPSULE PO SCH (09:15)
[2019-08-05 11:25] VITALS: BP 132/78
[2019-08-05 14:02] VITALS: BP 124/69
[2019-08-05] MEDS: DAPTOMYCIN 600 MG in SODIUM CHLORIDE 0.9% 100 ML IVPB SCH (17:08)
[2019-08-05 19:25] VITALS: BP 143/83
[2019-08-05] MEDS: FENOFIBRATE 145 MG TABLET PO SCH (20:08)
[2019-08-06 01:00] VITALS: BP 132/82
[2019-08-06] MEDS: ACETAMINOPHEN 325 MG TABLET PO PRN (01:32)
[2019-08-06] MEDS: HEPARIN 5,000 UNITS/ML, 1ML SQ SCH ×3 (01:33→17:45)
[2019-08-06] MEDS: CEFEPIME 1 GM in DEXTROSE 5% 50 ML IV SCH ×4 (03:27→19:36)
[2019-08-06] MEDS: CARVEDILOL 6.25 MG TABLET PO SCH ×2 (05:17→17:52)
[2019-08-06 05:37] LABS: BASOPHILS # (AUTO) 0.07 x10^3/uL (0-0.1); BASOPHILS % (AUTO) 1 % (0-1); EOSINOPHILS # (AUTO) 0.05 x10^3/uL (0-0.4); EOSINOPHILS % (AUTO) 1 % (1-7); LYMPHOCYTES # (AUTO) 4.31 x10^3/uL (1-3.4); LYMPHOCYTES % (AUTO) 37 % (22-44); MD NO; MEAN CORPUSCULAR HEMOGLOBIN 26.8 pg (27.0-34.8); MEAN CORPUSCULAR HGB CONC 33.1 g/dL (32.4-35.8); MEAN CORPUSCULAR VOLUME 81.1 fL (80-100); MEAN PLATELET VOLUME 8.7 fL (7.4-10.4); MONOCYTES # (AUTO) 0.63 x10^3/uL (0.2-0.8); MONOCYTES % (AUTO) 5 % (2-9); NEUTROPHILS # (AUTO) 6.75 x10^3/uL (1.8-6.8); NEUTROPHILS % (AUTO) 57 % (42-75); PLATELET COUNT 313 x10^3/uL (130-400); RED BLOOD COUNT 3.62 x10^6/uL (3.82-5.3); RED CELL DISTRIBUTION WIDTH 18.1 % (9.6-15.2)
[2019-08-06 05:46] LABS: ANION GAP 8 mmol/L (5-15); CALCIUM 8.9 mg/dL (8.5-10.1); CHLORIDE 103 mmol/L (98-107)
[2019-08-06 05:47] LABS: CREATININE 1.61 mg/dL (0.55-1.02)
[2019-08-06 07:54] VITALS: BP 118/74
[2019-08-06] MEDS: FERROUS SULFATE 325 MG TABLET PO SCH ×2 (08:02→16:49)
[2019-08-06] MEDS: FUROSEMIDE 40 MG/4 ML IV SCH ×2 (08:03→16:49)
[2019-08-06] MEDS: INSULIN LISPRO 100 UNITS/ML, PEN SQ-INSULIN SCH ×4 (08:10→21:10)
[2019-08-06] MEDS: SENNA/DOCUSATE TABLET PO SCH (09:00)
[2019-08-06] MEDS: ROPINIROLE 1MG TABLET PO SCH ×3 (09:56→21:10)
[2019-08-06] MEDS: OMEGA-3/FISH OIL CAPSULE PO SCH (09:56)
[2019-08-06] MEDS: MODAFINIL 100 MG TABLET PO SCH (09:56)
[2019-08-06] MEDS: PANTOPRAZOLE 40MG TABLET PO SCH ×2 (09:56→21:10)
[2019-08-06] MEDS: CITALOPRAM 20 MG TABLET PO SCH (09:56)
[2019-08-06] MEDS: CLOPIDOGREL 75 MG TABLET PO SCH (09:57)
[2019-08-06] MEDS: GABAPENTIN 300 MG CAPSULE PO SCH ×3 (09:57→21:10)
[2019-08-06] MEDS: INSULIN GLARGINE 100 UNITS/ML, PEN SQ-INSULIN SCH ×2 (10:02→21:35)
[2019-08-06 13:59] VITALS: BP 123/81
[2019-08-06 17:55] VITALS: BP 143/75
[2019-08-06] MEDS: DAPTOMYCIN 600 MG in SODIUM CHLORIDE 0.9% 100 ML IVPB SCH (18:16)
[2019-08-06 18:51] VITALS: BP 131/78
[2019-08-06] MEDS: FENOFIBRATE 145 MG TABLET PO SCH (21:10)
[2019-08-07 01:38] VITALS: BP 116/72
[2019-08-07] MEDS: HEPARIN 5,000 UNITS/ML, 1ML SQ SCH ×3 (02:13→17:03)
[2019-08-07] MEDS: CEFEPIME 1 GM in DEXTROSE 5% 50 ML IV SCH ×2 (03:23→11:15)
[2019-08-07 05:49] LABS: MEAN CORPUSCULAR HEMOGLOBIN 26.3 pg (27.0-34.8); MEAN CORPUSCULAR HGB CONC 32.3 g/dL (32.4-35.8); MEAN CORPUSCULAR VOLUME 81.6 fL (80-100); MEAN PLATELET VOLUME 8.5 fL (7.4-10.4); PLATELET COUNT 301 x10^3/uL (130-400); RED BLOOD COUNT 3.21 x10^6/uL (3.82-5.3); RED CELL DISTRIBUTION WIDTH 17.9 % (9.6-15.2)
[2019-08-07 05:51] LABS: ALBUMIN 1.8 g/dL (3.4-5.0); ANION GAP 7 mmol/L (5-15); CHLORIDE 102 mmol/L (98-107); CREATININE 1.63 mg/dL (0.55-1.02)
[2019-08-07 06:04] VITALS: BP 107/66
[2019-08-07] MEDS: CARVEDILOL 6.25 MG TABLET PO SCH (06:04)
[2019-08-07 06:16] LABS: BASOPHILS # (AUTO) 0.03 x10^3/uL (0-0.1); BASOPHILS % (AUTO) 0 % (0-1); EOSINOPHILS # (AUTO) 0.12 x10^3/uL (0-0.4); EOSINOPHILS % (AUTO) 1 % (1-7); LYMPHOCYTES # (AUTO) 5.47 x10^3/uL (1-3.4); LYMPHOCYTES % (AUTO) 49 % (22-44); MD SCAN; MONOCYTES # (AUTO) 0.55 x10^3/uL (0.2-0.8); MONOCYTES % (AUTO) 5 % (2-9); NEUTROPHILS # (AUTO) 4.93 x10^3/uL (1.8-6.8); NEUTROPHILS % (AUTO) 44 % (42-75)
[2019-08-07 06:58] VITALS: BP 109/69
[2019-08-07] MEDS: INSULIN LISPRO 100 UNITS/ML, PEN SQ-INSULIN SCH ×3 (07:00→16:00)
[2019-08-07] MEDS: FUROSEMIDE 40 MG/4 ML IV SCH (07:41)
[2019-08-07] MEDS: FERROUS SULFATE 325 MG TABLET PO SCH ×2 (07:41→17:04)
[2019-08-07] MEDS: SENNA/DOCUSATE TABLET PO SCH (09:00)
[2019-08-07] MEDS: MODAFINIL 100 MG TABLET PO SCH (09:40)
[2019-08-07] MEDS: CLOPIDOGREL 75 MG TABLET PO SCH (09:41)
[2019-08-07] MEDS: OMEGA-3/FISH OIL CAPSULE PO SCH (09:41)
[2019-08-07 09:42] VITALS: BP 96/61
[2019-08-07] MEDS: GABAPENTIN 300 MG CAPSULE PO SCH (09:42)
[2019-08-07] MEDS: CITALOPRAM 20 MG TABLET PO SCH (09:42)
[2019-08-07] MEDS: PANTOPRAZOLE 40MG TABLET PO SCH (09:47)
[2019-08-07] MEDS: ROPINIROLE 1MG TABLET PO SCH ×2 (09:48→17:04)
[2019-08-07] MEDS: INSULIN GLARGINE 100 UNITS/ML, PEN SQ-INSULIN SCH (09:58)
[2019-08-07] MEDS ORDERED: CARV3.1212 PO (13:41)
[2019-08-07] MEDS ORDERED: FURO10VI37 IV (13:41)
[2019-08-07] MEDS ORDERED: GABA-826 PO (13:41)
[2019-08-07 14:00] VITALS: BP 101/63
[2019-08-07] MEDS ORDERED: GABAPENTIN 100 MG CAPSULE PO SCH (16:00)
[2019-08-07 16:56] VITALS: BP 109/69
[2019-08-07] MEDS ORDERED: FUROSEMIDE 40 MG/4 ML IV SCH (17:00)
[2019-08-07] MEDS: DAPTOMYCIN 600 MG in SODIUM CHLORIDE 0.9% 100 ML IVPB SCH (17:06)
[2019-08-07] MEDS ORDERED: CARVEDILOL 3.125 MG TABLET PO SCH (18:00)
== END 2019-08-07 18:36 | DRG 853 ==
LOC: ED 18:56 → EDIP 21:54 → 5SO 22:51 → CCU 08-04 09:28 → 5SO 08-05 10:40
PROVIDERS: ADMIT Internal Medicine; ATTEND Internal Medicine
PROC: 0JBQ0ZZ Excision of Right Foot Subcutaneous Tissue and Fascia, Open Approach (ICD-10-PCS; 2019-07-26)
PROC: 5A09457 Assistance with Respiratory Ventilation, 24-96 Consecutive Hours, Continuous Positive Airway Pressure (ICD-10-PCS; 2019-07-26)
PROC: 0Y6V0Z0 Detachment at Right 4th Toe, Complete, Open Approach (ICD-10-PCS; principal; 2019-07-26 16:00)
PROC: 30233N1 Transfusion of Nonautologous Red Blood Cells into Peripheral Vein, Percutaneous Approach (ICD-10-PCS; 2019-07-27)
PROC: 5A09357 Assistance with Respiratory Ventilation, Less than 24 Consecutive Hours, Continuous Positive Airway Pressure (ICD-10-PCS; 2019-07-28)
PROC: 4A023N7 Measurement of Cardiac Sampling and Pressure, Left Heart, Percutaneous Approach (ICD-10-PCS; 2019-07-28)
PROC: B211YZZ Fluoroscopy of Multiple Coronary Arteries using Other Contrast (ICD-10-PCS; 2019-07-28)
PROC: B215YZZ Fluoroscopy of Left Heart using Other Contrast (ICD-10-PCS; 2019-07-28)
PROC: B21F1ZZ Fluoroscopy of Other Bypass Graft using Low Osmolar Contrast (ICD-10-PCS; 2019-07-28)
PROC: B218YZZ Fluoroscopy of Left Internal Mammary Bypass Graft using Other Contrast (ICD-10-PCS; 2019-07-28)
PROC: 5A09357 Assistance with Respiratory Ventilation, Less than 24 Consecutive Hours, Continuous Positive Airway Pressure (ICD-10-PCS; 2019-07-29)
PROC: 02HV33Z Insertion of Infusion Device into Superior Vena Cava, Percutaneous Approach (ICD-10-PCS; 2019-07-29)
PROC: B5181ZA Fluoroscopy of Superior Vena Cava using Low Osmolar Contrast, Guidance (ICD-10-PCS; 2019-07-29)
PROC: B548ZZA Ultrasonography of Superior Vena Cava, Guidance (ICD-10-PCS; 2019-07-29)
PROC: 5A09357 Assistance with Respiratory Ventilation, Less than 24 Consecutive Hours, Continuous Positive Airway Pressure (ICD-10-PCS; 2019-07-30)
PROC: 0Y9M00Z Drainage of Right Foot with Drainage Device, Open Approach (ICD-10-PCS; 2019-07-31)
PROC: 5A09357 Assistance with Respiratory Ventilation, Less than 24 Consecutive Hours, Continuous Positive Airway Pressure (ICD-10-PCS; 2019-07-31)
PROC: 5A09457 Assistance with Respiratory Ventilation, 24-96 Consecutive Hours, Continuous Positive Airway Pressure (ICD-10-PCS; 2019-08-01)
PROC: 0T9B70Z Drainage of Bladder with Drainage Device, Via Natural or Artificial Opening (ICD-10-PCS; 2019-08-04)
DX: A41.9 Sepsis, unspecified organism (principal); N17.0 Acute kidney failure with tubular necrosis; I21.3 ST elevation (STEMI) myocardial infarction of unspecified site; I50.43 Acute on chronic combined systolic (congestive) and diastolic (congestive) heart failure; J96.01 Acute respiratory failure with hypoxia; E87.1 Hypo-osmolality and hyponatremia; E11.52 Type 2 diabetes mellitus with diabetic peripheral angiopathy with gangrene; E87.2 Acidosis; G93.40 Encephalopathy, unspecified; I25.810 Atherosclerosis of coronary artery bypass graft(s) without angina pectoris; I42.0 Dilated cardiomyopathy; L02.611 Cutaneous abscess of right foot; M86.8X7 Other osteomyelitis, ankle and foot; D50.9 Iron deficiency anemia, unspecified; D63.8 Anemia in other chronic diseases classified elsewhere; D72.820 Lymphocytosis (symptomatic); E11.42 Type 2 diabetes mellitus with diabetic polyneuropathy; E11.621 Type 2 diabetes mellitus with foot ulcer; E11.622 Type 2 diabetes mellitus with other skin ulcer; E11.628 Type 2 diabetes mellitus with other skin complications; E11.65 Type 2 diabetes mellitus with hyperglycemia; E11.69 Type 2 diabetes mellitus with other specified complication; E66.01 Morbid (severe) obesity due to excess calories; E78.5 Hyperlipidemia, unspecified; E86.1 Hypovolemia; G47.33 Obstructive sleep apnea (adult) (pediatric); I11.0 Hypertensive heart disease with heart failure; I25.10 Atherosclerotic heart disease of native coronary artery without angina pectoris; I25.5 Ischemic cardiomyopathy; L89.90 Pressure ulcer of unspecified site, unspecified stage; L97.519 Non-pressure chronic ulcer of other part of right foot with unspecified severity; N14.1 Nephropathy induced by other drugs, medicaments and biological substances; T50.8X5A Adverse effect of diagnostic agents, initial encounter; Z79.02 Long term (current) use of antithrombotics/antiplatelets; Z79.4 Long term (current) use of insulin; Z82.49 Family history of ischemic heart disease and other diseases of the circulatory system; Z83.3 Family history of diabetes mellitus; Z87.891 Personal history of nicotine dependence; Z90.710 Acquired absence of both cervix and uterus; Z87.442 Personal history of urinary calculi; Z90.49 Acquired absence of other specified parts of digestive tract; Z91.010 Allergy to peanuts
CPT/HCPCS: 36415; 36430; 36573; 36600; 70450; 71045; 71275; 76770; 80048; 80053; 80069; 80202; 81001; 82140; 82272; 82550; 82728; 82803; 82962; 83036; 83540; 83550; 83605; 83735; 83880; 84145; 84443; 84466; 84484; 85014; 85018; 85025; 85379; 85520; 85651; 86140; 86850; 86900; 86923; 87040; 87070; 87075; 87076; 87077; 87081; 87086; 87106; 87186; 87205; 93005; 93459; 99156; 99157; 99285; C1769; C1894; G0378; J0171; J0583; J0692; J0878; J1644; J1940; J2250; J2543; J3010; J3370; J3490; Q0162; Q9967; A9575; C1751; C1887; J1815; J2270; J7030; J7040; J7050; P9016

== ENCOUNTER 2020-07-16 12:16 | Emergency (ER) | payer OTHER ==
[~2020-07-16] VITALS: Ht 160 cm; Wt 94.3 kg
[~2020-07-16 12:16] MED LIST changes: +CARV3.1212 PO; +FURO10VI37 IV; +GABA-826 PO; -LISI40TA PO; +LISI40TA9 PO; -MECL12.581 PO; +MECL12.590 PO; -PANT40TA5 PO; +PANT40TA6 PO
[2020-07-16 14:10] LABS: MICROSCOPIC AUTO
[2020-07-16] MEDS ORDERED: FLUCONAZOLE 50 MG TABLET PO ONE (14:30)
[2020-07-16 14:38] LABS: MEAN CORPUSCULAR HEMOGLOBIN 27.5 pg (27.0-34.8); MEAN CORPUSCULAR HGB CONC 33.4 g/dL (32.4-35.8); MEAN PLATELET VOLUME 8.2 fL (7.4-10.4); PLATELET COUNT 166 x10^3/uL (130-400); RED BLOOD COUNT 3.94 x10^6/uL (3.82-5.3); RED CELL DISTRIBUTION WIDTH 16.7 % (9.6-15.2)
[2020-07-16 14:51] LABS: ALBUMIN 3.2 g/dL (3.4-5.0); ANION GAP 6 mmol/L (5-15); CALCIUM 8.5 mg/dL (8.5-10.1); CHLORIDE 104 mmol/L (98-107); CREATININE 1.41 mg/dL (0.55-1.02)
[2020-07-16] MEDS ORDERED: CEFTRIAXONE PMX 1GM/50ML 50 ML IV ONE (15:00)
[2020-07-16] MEDS ORDERED: SODIUM CHLORIDE FLUSH 10ML SYR IVF ONE (15:00)
[2020-07-16] MEDS ORDERED: SODIUM CHLORIDE 0.9% 1,000ML IVBOLUS ONE (15:00)
[2020-07-16] MEDS ORDERED: CEFTRIAXONE PMX 1GM/50ML 50 ML ONE (15:04)
--- NOTE | 2020-07-16 15:07 | NUR ---
PT IN BED WITH NO SIGNS OR SYMPTOMS OF ACUTE DISTRESS NOTED RESPIRATIONS EVEN AND UNLABORED CALL LIGHT WITHIN REACH, PT ORDERED FOR ROCEPHIN, THIS RN CONFIRMED WITH PROVIDER THAT BLOOD CULTURES WILL NO BE ORDERED, OK TO PROCEDE WITH ABX.
[2020-07-16 15:16] LABS: MD YES
[2020-07-16 15:19] LABS: BAND#(MANUAL) 0.19 x10^3/uL; BANDS%(MANUAL) 3 % (0-7); BASOS#(MANUAL) 0.06 x10^3/uL (0-0.1); BASOS% (MANUAL) 1 % (0-1); EOS#(MANUAL) 0.06 x10^3/uL (0.0-0.4); EOS% (MANUAL) 1 % (1-7); LYMPH#(MANUAL) 4.85 x10^3/uL (1-3.4); LYMPHS% (MANUAL) 77 % (22-44); MONOS#(MANUAL) 0.25 x10^3/uL (0.3-2.7); MONOS% (MANUAL) 4 % (2-9); SEG#(MANUAL) 0.88 x10^3/uL (1.8-6.8); SEGS% (MANUAL) 14 % (42-75)
[2020-07-16 15:24] LABS: <PLATELET ESTIMATE> ADEQUATE; <PLT MORPHOLOGY> NORMAL PLT MORPH; <RBC MORPHOLOGY> NORMAL
[2020-07-16] MEDS ORDERED: INSULIN LISPRO 100 UNITS/ML, PEN ONE (15:35)
[2020-07-16] MEDS ORDERED: INSULIN REGULAR 100 UNITS/ML, 3ML VIAL SQ-INSULIN ONE (16:00)
--- NOTE | 2020-07-16 16:09 | NUR ---
PT IN BED WITH NO SIGNS OR SYMPTOMS OF ACUTE DISTRESS NOTED RESPIRATIONS EVEN AND UNLABORED PT ABLE TO TAKE PO WELL, DENIES PAIN OR DISCOMFORT AT THIS TIME. PT WITH IVF INFUSING WELL AT [facility].
[2020-07-16 17:11] VITALS: BP 158/75
== END 2020-07-16 17:24 | disposition home or self-care (01) ==
LOC: ED 16:12
DX: N30.00 Acute cystitis without hematuria (principal); N76.0 Acute vaginitis; E10.65 Type 1 diabetes mellitus with hyperglycemia; R30.0 Dysuria; R10.2 Pelvic and perineal pain; K21.9 Gastro-esophageal reflux disease without esophagitis; I10 Essential (primary) hypertension; E78.00 Pure hypercholesterolemia, unspecified
CPT/HCPCS: 36415; 80048; 81001; 82040; 82962; 85025; 87077; 87086; 87186; 96365; 96366; 99284; J0696; J1815; J7030

== ENCOUNTER 2020-09-05 15:35 | Emergency (ER) | payer OTHER ==
[~2020-09-05] VITALS: Ht 154.9 cm; Wt 91.5 kg
[~2020-09-05 15:35] MED LIST changes: +SULF-23 PO; -SULF1TAB24 PO
--- NOTE | 2020-09-05 16:47 | NUR ---
education managers: pt from lobby to room 40
--- NOTE | 2020-09-05 16:57 | NUR ---
PATIENT WALKED BACK FROM TRIAGE WITH CHIEF C/O MUSCLE SPASMS. PER PATIENT SPASMS HAVE BEEN GOING ON ALL WEEK OFF AND ON, HAVE GOTTEN WORSE THE LAST 3 DAYS. SPASMS FROM THE NECK DOWN THE LEFT SIDE OF THE BODY. EDGARDO YOO, CALL LIGHT WITHIN REACH.
[2020-09-05] MEDS ORDERED: KETOROLAC 30 MG/1 ML IM ONE (17:30)
[2020-09-05] MEDS ORDERED: CYCLOBENZAPRINE 10 MG TABLET PO ONE (17:30)
[2020-09-05 17:40] LABS: MEAN CORPUSCULAR HEMOGLOBIN 27.7 pg (27.0-34.8); MEAN CORPUSCULAR HGB CONC 34.1 g/dL (32.4-35.8); MEAN PLATELET VOLUME 7.9 fL (7.4-10.4); PLATELET COUNT 189 x10^3/uL (130-400); RED BLOOD COUNT 4.17 x10^6/uL (3.82-5.3); RED CELL DISTRIBUTION WIDTH 16.5 % (9.6-15.2)
[2020-09-05] MEDS ORDERED: CYCLOBENZAPRINE 10 MG TABLET ONE (17:45)
[2020-09-05] MEDS ORDERED: KETOROLAC 30 MG/1 ML ONE (17:45)
--- NOTE | 2020-09-05 17:46 | NUR ---
PATIENT MEDICATED PER eMAR, NADN, VSS, CALL LIGHT WITHIN REACH. PATIENT UP FOR RECHECK.
[2020-09-05 17:52] LABS: ALBUMIN 3.4 g/dL (3.4-5.0); ANION GAP 6 mmol/L (5-15); CALCIUM 8.7 mg/dL (8.5-10.1); CHLORIDE 103 mmol/L (98-107); CREATININE 1.45 mg/dL (0.55-1.02)
[2020-09-05 18:03] LABS: MD YES
[2020-09-05 18:08] LABS: MONOS#(MANUAL) 0.31 x10^3/uL (0.3-2.7); MONOS% (MANUAL) 4 % (2-9); REACTIVE LYMPHS # (MANUAL) 0.31 x10^3/uL (0-0); REACTIVE LYMPHS % (MANUAL) 4 % (0-0); SEG#(MANUAL) 1.87 x10^3/uL (1.8-6.8); SEGS% (MANUAL) 24 % (42-75)
[2020-09-05 18:10] VITALS: BP 116/53
[2020-09-05 18:15] LABS: <PLATELET ESTIMATE> ADEQUATE; <PLT MORPHOLOGY> NORMAL PLT MORPH; ANISOCYTOSIS 1+
[2020-09-05 18:18] LABS: LYMPHS% (MANUAL) 68 % (22-44)
--- NOTE | 2020-09-05 18:23 | NUR ---
Patient given discharge instructions and prescription and they have confirmed that they understand the instructions. Patient stable and ambulatory with steady gait with walker from ED to private vehicle.
== END 2020-09-05 18:24 | disposition home or self-care (01) ==
LOC: ED 18:19
DX: S16.1XXA Strain of muscle, fascia and tendon at neck level, initial encounter (principal); S39.012A Strain of muscle, fascia and tendon of lower back, initial encounter; I10 Essential (primary) hypertension; E11.9 Type 2 diabetes mellitus without complications; K21.9 Gastro-esophageal reflux disease without esophagitis; E78.00 Pure hypercholesterolemia, unspecified; Z90.49 Acquired absence of other specified parts of digestive tract; Z90.710 Acquired absence of both cervix and uterus; Z91.010 Allergy to peanuts; X58.XXXA Exposure to other specified factors, initial encounter; Y93.89 Activity, other specified; Y92.89 Other specified places as the place of occurrence of the external cause; Y99.8 Other external cause status
CPT/HCPCS: 36415; 80048; 82040; 85025; 93005; 96372; 99283; J1885

== ENCOUNTER 2020-10-26 12:14 | Inpatient (IN) | payer OTHER ==
[~2020-10-26] VITALS: Ht 160 cm; Wt 103.6 kg
--- NOTE | 2020-10-26 12:50 | NUR ---
PT RESTING IN GOWN IN [facility]; LINDA HATFIELD, AT FOR PT HISTORY AND ASSESSMENT. PT EDUCATED ON ER PROCESS AND POC AND VERBALIZES UNDERSTANDING. CALL LIGHT IS WITHIN REACH OF PT AT THIS TIME.
--- NOTE | 2020-10-26 12:55 | NUR ---
LAB AT BS AT THIS TIME.
--- NOTE | 2020-10-26 12:56 | NUR ---
PT C/0 LEFT FOOT HAS A WOUND THE LAST TWO WEEKS HAS A PROBLEM PT HAS DIABETES ALSO.
[2020-10-26 13:02] LABS: BASOPHILS % (AUTO) 1 % (0-1); EOSINOPHILS % (AUTO) 2 % (1-7); LYMPHOCYTES % (AUTO) 55 % (22-44); MEAN CORPUSCULAR HEMOGLOBIN 27.7 pg (27.0-34.8); MEAN CORPUSCULAR HGB CONC 33.9 g/dL (32.4-35.8); MEAN PLATELET VOLUME 7.7 fL (7.4-10.4); MONOCYTES % (AUTO) 6 % (2-9); NEUTROPHILS % (AUTO) 37 % (42-75); PLATELET COUNT 230 x10^3/uL (130-400); RED BLOOD COUNT 3.47 x10^6/uL (3.82-5.3); RED CELL DISTRIBUTION WIDTH 15.9 % (9.6-15.2)
--- NOTE | 2020-10-26 13:02 | NUR ---
XRAY IN PT ROOM AT THIS TIME.
[2020-10-26 13:17] LABS: CHLORIDE 101 mmol/L (98-107)
[2020-10-26 13:33] LABS: ALBUMIN 2.9 g/dL (3.4-5.0); ANION GAP 10 mmol/L (5-15); CALCIUM 8.9 mg/dL (8.5-10.1); CREATININE 1.22 mg/dL (0.55-1.02)
--- NOTE | 2020-10-26 13:50 | NUR ---
PT RESTING ON [employer]. RAILS UP X2 AND SET AT LOWEST LEVEL CALL REMOTE WITHIN REACH. PT REQUESTING WATER, WILL CHECK WITH PROVIDER.
[2020-10-26] MEDS ORDERED: CEFAZOLIN 1,000 MG IV ONE (14:30)
[2020-10-26] MEDS ORDERED: CEFAZOLIN PMX 1GM/50ML 50 ML IVPB ONE (14:30)
[2020-10-26] MEDS ORDERED: CEFAZOLIN PMX 1GM/50ML 50 ML ONE (14:41)
--- NOTE | 2020-10-26 14:47 | NUR ---
Preceptor RN: pt here for wound to L foot. wound is round and black and on the bottom of her foot under the ball of her foot by her toes. ABX infusion intitiated and bleongings ist completed. pt resting in position of comfort. pt updated on POC. no family at bedside. awaiting admit orders
[2020-10-26] MEDS ORDERED: SODIUM CHLORIDE FLUSH 10ML SYR IVF PRN (15:00)
[2020-10-26] MEDS ORDERED: METF500T17 PO (15:24)
--- NOTE | 2020-10-26 15:25 | NUR ---
report given to Terri magallon.
[2020-10-26] MEDS ORDERED: morphine SULFATE 10 MG/ML, 1ML IVPush PRN (15:30)
[2020-10-26] MEDS ORDERED: ENALAPRILAT 1.25 MG/ML, 2ML IVPush PRN (15:30)
[2020-10-26] MEDS ORDERED: hydrALAzine 20 MG/ML, 1ML IVPush PRN (15:30)
[2020-10-26] MEDS ORDERED: VANCOMYCIN PER PHARMACY MC PRN (15:30)
[2020-10-26] MEDS ORDERED: ACETAMINOPHEN 325 MG TABLET PO PRN (15:30)
[2020-10-26] MEDS ORDERED: MELATONIN 5 MG TABLET PO PRN (15:30)
[2020-10-26] MEDS ORDERED: MECLIZINE 12.5 MG TABLET PO PRN (15:30)
[2020-10-26] MEDS ORDERED: ONDANSETRON 2MG/ML, 2ML IVPush PRN (15:30)
[2020-10-26 15:45] VITALS: BP 122/77
[2020-10-26 15:59] VITALS: BP 120/71
[2020-10-26] MEDS ORDERED: AMPICILLIN/SULBACTAM 3 GM in SODIUM CHLORIDE 0.9% 100 ML IV SCH (16:00)
[2020-10-26] MEDS ORDERED: PHARMACOKINETIC MONITORING MC PRN (16:00)
[2020-10-26] MEDS ORDERED: VANCOMYCIN 1,800 MG in SODIUM CHLORIDE 0.9% 250 ML IV ONE (16:00)
[2020-10-26] MEDS: GABAPENTIN 100 MG CAPSULE PO SCH ×2 (17:39→20:57)
[2020-10-26] MEDS: CARVEDILOL 3.125 MG TABLET PO SCH (17:39)
[2020-10-26] MEDS: INSULIN LISPRO 100 UNITS/ML, PEN SQ-INSULIN SCH ×2 (17:44→21:30)
[2020-10-26 19:28] VITALS: BP 133/83
[2020-10-26] MEDS: ROPINIROLE 1MG TABLET PO SCH (20:56)
[2020-10-26] MEDS: PANTOPRAZOLE 40MG TABLET PO SCH (20:56)
[2020-10-26] MEDS: AMPICILLIN/SULBACTAM 3 GM in SODIUM CHLORIDE 0.9% 100 ML IV SCH (20:56)
[2020-10-26] MEDS: FENOFIBRATE 54 MG TABLET PO SCH (20:57)
[2020-10-26] MEDS: ATORVASTATIN 40 MG TABLET PO SCH (20:57)
[2020-10-26] MEDS: INSULIN GLARGINE 100 UNITS/ML, PEN SQ-INSULIN SCH (21:31)
[2020-10-27 00:47] VITALS: BP 116/73
[2020-10-27] MEDS: AMPICILLIN/SULBACTAM 3 GM in SODIUM CHLORIDE 0.9% 100 ML IV SCH ×4 (03:00→21:27)
[2020-10-27 05:07] LABS: HCT (SEDRATE) 27.3 % (34.6-47.8)
[2020-10-27 05:08] LABS: MEAN CORPUSCULAR HEMOGLOBIN 27.5 pg (27.0-34.8); MEAN CORPUSCULAR HGB CONC 33.5 g/dL (32.4-35.8); MEAN PLATELET VOLUME 7.6 fL (7.4-10.4); PLATELET COUNT 244 x10^3/uL (130-400); RED BLOOD COUNT 3.36 x10^6/uL (3.82-5.3); RED CELL DISTRIBUTION WIDTH 16.2 % (9.6-15.2)
[2020-10-27 05:12] LABS: ANION GAP 8 mmol/L (5-15); CALCIUM 8.8 mg/dL (8.5-10.1); CHLORIDE 106 mmol/L (98-107); CREATININE 1.13 mg/dL (0.55-1.02)
[2020-10-27] MEDS: CARVEDILOL 3.125 MG TABLET PO SCH ×2 (05:30→17:55)
[2020-10-27 05:58] LABS: EOS% (MANUAL) 1 % (1-7); METAMYELOCYTES% (MANUAL) 1 % (0-1); MONOS#(MANUAL) 0.58 x10^3/uL (0.3-2.7); MONOS% (MANUAL) 6 % (2-9); SEG#(MANUAL) 2.43 x10^3/uL (1.8-6.8); SEGS% (MANUAL) 25 % (42-75)
[2020-10-27 05:59] LABS: <PLATELET ESTIMATE> ADEQUATE; <PLT MORPHOLOGY> NORMAL PLT MORPH; ANISOCYTOSIS 1+; MICROCYTOSIS 1+; POLYCHROMASIA 1+
[2020-10-27 06:00] LABS: LYMPH#(MANUAL) 6.11 x10^3/uL (1-3.4); LYMPHS% (MANUAL) 63 % (22-44); REACTIVE LYMPHS # (MANUAL) 0.39 x10^3/uL (0-0); REACTIVE LYMPHS % (MANUAL) 4 % (0-0)
[2020-10-27 08:17] VITALS: BP 120/77
[2020-10-27] MEDS: ROPINIROLE 1MG TABLET PO SCH ×3 (08:31→21:27)
[2020-10-27] MEDS: INSULIN GLARGINE 100 UNITS/ML, PEN SQ-INSULIN SCH ×2 (08:31→21:41)
[2020-10-27] MEDS: PANTOPRAZOLE 40MG TABLET PO SCH ×2 (08:31→21:27)
[2020-10-27] MEDS: GABAPENTIN 100 MG CAPSULE PO SCH ×3 (08:31→21:27)
[2020-10-27] MEDS: INSULIN LISPRO 100 UNITS/ML, PEN SQ-INSULIN SCH ×4 (08:31→21:41)
[2020-10-27] MEDS ORDERED: VANCOMYCIN 1,900 MG in SODIUM CHLORIDE 0.9% 250 ML IV ONE (11:30)
[2020-10-27] MEDS ORDERED: VANCOMYCIN 1,700 MG in SODIUM CHLORIDE 0.9% 250 ML IV ONE (11:30)
[2020-10-27 13:39] VITALS: BP 150/82
[2020-10-27] MEDS ORDERED: NEOSPORIN OINT, 15GM ONE (14:10)
[2020-10-27] MEDS ORDERED: BUPIVACAINE/PF 0.5% ONE (14:10)
[2020-10-27] MEDS ORDERED: CHLORHEXIDINE 15 ML UDC ONE (14:12)
[2020-10-27] MEDS ORDERED: CHLORHEXIDINE 15 ML UDC PO ONE (14:30)
[2020-10-27] MEDS ORDERED: SUGAMMADEX 200 MG/2 ML IVPush ONE (15:30)
[2020-10-27] MEDS ORDERED: FENTANYL PF 100 MCG/2ML ONE (15:31)
[2020-10-27] MEDS ORDERED: VANCOMYCIN 1,400 MG in SODIUM CHLORIDE 0.9% 250 ML IV SCH (16:00)
[2020-10-27] MEDS ORDERED: PROPOFOL 10 MG/ML, 20ML ONE (16:14)
[2020-10-27] MEDS ORDERED: SUCCINYLCHOLINE 20 MG/ML, 10ML ONE (16:14)
[2020-10-27] MEDS ORDERED: NEOSTIGMINE 1 MG/ML, 10ML ONE (16:14)
[2020-10-27] MEDS ORDERED: ROCURONIUM 10MG/ML,5ML ONE (16:14)
[2020-10-27] MEDS ORDERED: ONDANSETRON 2MG/ML, 2ML ONE (16:14)
[2020-10-27] MEDS ORDERED: DEXAMETHASONE 4 MG/ML, 1ML ONE (16:14)
[2020-10-27] MEDS ORDERED: CEFAZOLIN 1,000 MG ONE (16:14)
[2020-10-27] MEDS ORDERED: GLYCOPYRROLATE 0.2MG/1ML, 5ML ONE (16:14)
[2020-10-27] MEDS ORDERED: FENTANYL PF 100 MCG/2ML IV PRN (17:00)
[2020-10-27] MEDS ORDERED: ACETAMINOPHEN 325 MG TABLET PO PRN (17:00)
[2020-10-27] MEDS ORDERED: PROMETHAZINE 25 MG/ML, 1ML IVPush PRN (17:00)
[2020-10-27] MEDS ORDERED: HYDROmorphone 1 MG/ML, 1ML INJ IVPush PRN (17:00)
[2020-10-27] MEDS ORDERED: ONDANSETRON 2MG/ML, 2ML IVPush PRN (17:00)
[2020-10-27] MEDS ORDERED: OXYcodone 5 MG/5 ML ORAL.SOL UDC PO PRN (17:00)
[2020-10-27 17:51] VITALS: BP 114/72
[2020-10-27 20:11] VITALS: BP 112/73
[2020-10-27] MEDS: ATORVASTATIN 40 MG TABLET PO SCH (21:27)
[2020-10-27] MEDS: FENOFIBRATE 54 MG TABLET PO SCH (21:27)
[2020-10-28 01:28] VITALS: BP 130/80
[2020-10-28] MEDS: AMPICILLIN/SULBACTAM 3 GM in SODIUM CHLORIDE 0.9% 100 ML IV SCH ×4 (03:54→21:20)
[2020-10-28 05:09] VITALS: BP 135/83
[2020-10-28] MEDS: CARVEDILOL 3.125 MG TABLET PO SCH ×2 (05:11→19:09)
[2020-10-28 05:31] LABS: VANCOMYCIN,RANDOM 21.6 mcg/mL
[2020-10-28 06:34] VITALS: BP 119/73
[2020-10-28] MEDS: INSULIN LISPRO 100 UNITS/ML, PEN SQ-INSULIN SCH ×4 (07:52→21:19)
[2020-10-28] MEDS: ROPINIROLE 1MG TABLET PO SCH ×3 (09:19→21:21)
[2020-10-28] MEDS: PANTOPRAZOLE 40MG TABLET PO SCH ×2 (09:20→21:22)
[2020-10-28] MEDS: GABAPENTIN 100 MG CAPSULE PO SCH ×3 (09:20→21:21)
[2020-10-28] MEDS: INSULIN GLARGINE 100 UNITS/ML, PEN SQ-INSULIN SCH ×2 (09:21→21:18)
[2020-10-28] MEDS: VANCOMYCIN 1,600 MG in SODIUM CHLORIDE 0.9% 250 ML IV SCH (10:20)
[2020-10-28 12:40] VITALS: BP 126/75
[2020-10-28 20:08] VITALS: BP 110/67
[2020-10-28] MEDS: FENOFIBRATE 54 MG TABLET PO SCH (21:21)
[2020-10-28] MEDS: ATORVASTATIN 40 MG TABLET PO SCH (21:21)
[2020-10-29 01:12] VITALS: BP 115/75
[2020-10-29] MEDS: AMPICILLIN/SULBACTAM 3 GM in SODIUM CHLORIDE 0.9% 100 ML IV SCH ×4 (03:00→21:03)
[2020-10-29 05:45] VITALS: BP 109/66
[2020-10-29] MEDS: CARVEDILOL 3.125 MG TABLET PO SCH ×2 (05:46→18:35)
[2020-10-29] MEDS: INSULIN LISPRO 100 UNITS/ML, PEN SQ-INSULIN SCH ×4 (07:16→21:00)
[2020-10-29 07:29] VITALS: BP 117/71
[2020-10-29] MEDS: ROPINIROLE 1MG TABLET PO SCH ×3 (09:49→21:04)
[2020-10-29] MEDS: PANTOPRAZOLE 40MG TABLET PO SCH ×2 (09:49→21:04)
[2020-10-29] MEDS: GABAPENTIN 100 MG CAPSULE PO SCH ×3 (09:49→21:04)
[2020-10-29] MEDS: INSULIN GLARGINE 100 UNITS/ML, PEN SQ-INSULIN SCH ×2 (09:58→21:00)
[2020-10-29] MEDS: VANCOMYCIN 1,600 MG in SODIUM CHLORIDE 0.9% 250 ML IV SCH (10:47)
[2020-10-29 13:09] VITALS: BP 111/72
[2020-10-29] MEDS: FLUCONAZOLE 200 MG TABLET PO SCH (13:30)
[2020-10-29 19:17] VITALS: BP 120/74
[2020-10-29] MEDS: ATORVASTATIN 40 MG TABLET PO SCH (21:04)
[2020-10-29] MEDS: metFORMIN 500 MG TABLET PO SCH (21:04)
[2020-10-29] MEDS: FENOFIBRATE 54 MG TABLET PO SCH (21:04)
[2020-10-30 00:31] VITALS: BP 120/78
[2020-10-30] MEDS: AMPICILLIN/SULBACTAM 3 GM in SODIUM CHLORIDE 0.9% 100 ML IV SCH ×4 (03:11→20:24)
[2020-10-30 05:51] VITALS: BP 139/82
[2020-10-30] MEDS: CARVEDILOL 3.125 MG TABLET PO SCH ×2 (05:54→17:53)
[2020-10-30 06:57] VITALS: BP 121/79
[2020-10-30] MEDS: INSULIN LISPRO 100 UNITS/ML, PEN SQ-INSULIN SCH ×6 (07:49→20:39)
[2020-10-30] MEDS ORDERED: ROPINIROLE HCL 2 MG PO SCH (09:00)
[2020-10-30] MEDS: PANTOPRAZOLE 40MG TABLET PO SCH ×2 (09:51→20:24)
[2020-10-30] MEDS: FLUCONAZOLE 200 MG TABLET PO SCH (09:51)
[2020-10-30] MEDS: metFORMIN 500 MG TABLET PO SCH ×2 (09:51→20:24)
[2020-10-30] MEDS: ROPINIROLE 1MG TABLET PO SCH ×3 (09:51→20:24)
[2020-10-30] MEDS: GABAPENTIN 100 MG CAPSULE PO SCH ×3 (09:51→20:24)
[2020-10-30] MEDS: INSULIN GLARGINE 100 UNITS/ML, PEN SQ-INSULIN SCH ×2 (09:52→20:40)
[2020-10-30] MEDS: CLOPIDOGREL 75 MG TABLET PO SCH (09:52)
[2020-10-30] MEDS: ENOXAPARIN 40 MG/0.4 ML SQ SCH (09:53)
[2020-10-30] MEDS ORDERED: VANCOMYCIN 1,900 MG in SODIUM CHLORIDE 0.9% 250 ML IV SCH (10:00)
[2020-10-30 13:07] VITALS: BP 146/84
[2020-10-30] MEDS: ONDANSETRON ODT 4 MG PO PRN (19:04)
[2020-10-30 19:05] VITALS: BP 135/81
[2020-10-30] MEDS: FENOFIBRATE 54 MG TABLET PO SCH (20:24)
[2020-10-30] MEDS: ATORVASTATIN 40 MG TABLET PO SCH (20:24)
[2020-10-31 00:27] VITALS: BP 125/76
[2020-10-31] MEDS: AMPICILLIN/SULBACTAM 3 GM in SODIUM CHLORIDE 0.9% 100 ML IV SCH ×4 (03:35→22:27)
[2020-10-31] MEDS: CARVEDILOL 3.125 MG TABLET PO SCH ×2 (06:33→17:31)
[2020-10-31 06:40] VITALS: BP 113/72
[2020-10-31] MEDS: INSULIN LISPRO 100 UNITS/ML, PEN SQ-INSULIN SCH ×4 (07:00→22:30)
[2020-10-31] MEDS: metFORMIN 500 MG TABLET PO SCH ×2 (08:41→22:26)
[2020-10-31] MEDS: ROPINIROLE 1MG TABLET PO SCH ×3 (08:41→22:26)
[2020-10-31] MEDS: CLOPIDOGREL 75 MG TABLET PO SCH (08:41)
[2020-10-31] MEDS: PANTOPRAZOLE 40MG TABLET PO SCH ×2 (08:41→22:26)
[2020-10-31] MEDS: GABAPENTIN 100 MG CAPSULE PO SCH ×3 (08:42→22:26)
[2020-10-31] MEDS: FLUCONAZOLE 200 MG TABLET PO SCH (08:42)
[2020-10-31] MEDS: INSULIN GLARGINE 100 UNITS/ML, PEN SQ-INSULIN SCH ×2 (08:43→22:31)
[2020-10-31] MEDS: ENOXAPARIN 40 MG/0.4 ML SQ SCH (08:43)
[2020-10-31 14:18] VITALS: BP 121/83
[2020-10-31 17:31] VITALS: BP 101/61
[2020-10-31 19:22] VITALS: BP 121/75
[2020-10-31] MEDS: FENOFIBRATE 54 MG TABLET PO SCH (22:26)
[2020-10-31] MEDS: ATORVASTATIN 40 MG TABLET PO SCH (22:26)
[2020-11-01 00:27] VITALS: BP 132/86
[2020-11-01] MEDS: AMPICILLIN/SULBACTAM 3 GM in SODIUM CHLORIDE 0.9% 100 ML IV SCH ×3 (04:14→18:16)
[2020-11-01 05:35] VITALS: BP 133/90
[2020-11-01 05:38] LABS: MEAN CORPUSCULAR HEMOGLOBIN 27.1 pg (27.0-34.8); MEAN PLATELET VOLUME 8.1 fL (7.4-10.4); PLATELET COUNT 288 x10^3/uL (130-400); RED CELL DISTRIBUTION WIDTH 16.3 % (9.6-15.2)
[2020-11-01] MEDS: CARVEDILOL 3.125 MG TABLET PO SCH ×2 (05:38→18:19)
[2020-11-01 05:47] LABS: ALANINE AMINOTRANSFERASE 23 U/L (12-78); ALBUMIN 2.7 g/dL (3.4-5.0); ANION GAP 4 mmol/L (5-15); CALCIUM 8.5 mg/dL (8.5-10.1); CHLORIDE 110 mmol/L (98-107); CREATININE 1.03 mg/dL (0.55-1.02)
[2020-11-01 05:50] LABS: ALKALINE PHOSPHATASE 125 U/L (45-117); BILIRUBIN,TOTAL 0.4 mg/dL (0.2-1.0); TOTAL PROTEIN 6.7 g/dL (6.4-8.2)
[2020-11-01 06:07] LABS: ANISOCYTOSIS 1+; EOS#(MANUAL) 0.07 x10^3/uL (0.0-0.4); EOS% (MANUAL) 1 % (1-7); LYMPH#(MANUAL) 3.64 x10^3/uL (1-3.4); LYMPHS% (MANUAL) 56 % (22-44); MONOS#(MANUAL) 0.33 x10^3/uL (0.3-2.7); MONOS% (MANUAL) 5 % (2-9); SEG#(MANUAL) 2.47 x10^3/uL (1.8-6.8); SEGS% (MANUAL) 38 % (42-75)
[2020-11-01 06:08] LABS: <PLATELET ESTIMATE> ADEQUATE; <PLT MORPHOLOGY> NORMAL PLT MORPH
[2020-11-01] MEDS: INSULIN LISPRO 100 UNITS/ML, PEN SQ-INSULIN SCH ×4 (07:00→20:07)
[2020-11-01 07:11] VITALS: BP 126/75
[2020-11-01] MEDS: metFORMIN 500 MG TABLET PO SCH ×2 (08:48→20:04)
[2020-11-01] MEDS: PANTOPRAZOLE 40MG TABLET PO SCH ×2 (08:48→20:04)
[2020-11-01] MEDS: GABAPENTIN 100 MG CAPSULE PO SCH ×3 (08:48→20:04)
[2020-11-01] MEDS: ROPINIROLE 1MG TABLET PO SCH ×3 (08:48→20:04)
[2020-11-01] MEDS: CLOPIDOGREL 75 MG TABLET PO SCH (08:48)
[2020-11-01] MEDS: FLUCONAZOLE 200 MG TABLET PO SCH (08:48)
[2020-11-01] MEDS: ENOXAPARIN 30 MG/0.3 ML SQ SCH ×2 (08:49→20:04)
[2020-11-01] MEDS: INSULIN GLARGINE 100 UNITS/ML, PEN SQ-INSULIN SCH ×2 (08:56→20:23)
[2020-11-01 13:05] VITALS: BP 157/92
[2020-11-01] MEDS: ONDANSETRON ODT 4 MG PO PRN (14:26)
[2020-11-01 19:07] VITALS: BP 154/96
[2020-11-01] MEDS: FENOFIBRATE 54 MG TABLET PO SCH (20:04)
[2020-11-01] MEDS: ATORVASTATIN 40 MG TABLET PO SCH (20:04)
[2020-11-02] MEDS: AMPICILLIN/SULBACTAM 3 GM in SODIUM CHLORIDE 0.9% 100 ML IV SCH ×3 (00:04→12:30)
[2020-11-02 00:54] VITALS: BP 132/76
[2020-11-02] MEDS: CARVEDILOL 3.125 MG TABLET PO SCH ×2 (05:59→18:00)
[2020-11-02 06:39] VITALS: BP 116/72
[2020-11-02] MEDS: INSULIN LISPRO 100 UNITS/ML, PEN SQ-INSULIN SCH ×3 (07:00→16:00)
[2020-11-02] MEDS: ROPINIROLE 1MG TABLET PO SCH ×2 (07:28→15:03)
[2020-11-02] MEDS: GABAPENTIN 100 MG CAPSULE PO SCH ×2 (07:28→15:03)
[2020-11-02] MEDS: PANTOPRAZOLE 40MG TABLET PO SCH (07:28)
[2020-11-02] MEDS: metFORMIN 500 MG TABLET PO SCH (07:28)
[2020-11-02] MEDS: FLUCONAZOLE 200 MG TABLET PO SCH (07:29)
[2020-11-02] MEDS: CLOPIDOGREL 75 MG TABLET PO SCH (07:29)
[2020-11-02] MEDS: ENOXAPARIN 30 MG/0.3 ML SQ SCH (07:29)
[2020-11-02] MEDS: INSULIN GLARGINE 100 UNITS/ML, PEN SQ-INSULIN SCH (09:00)
[2020-11-02] MEDS: ONDANSETRON ODT 4 MG PO PRN ×2 (10:39→15:04)
[2020-11-02 12:16] VITALS: BP 113/76
[2020-11-02] MEDS ORDERED: MAALOX/HYOSCYAMINE/LIDOCAINE 45 ML BTL PO ONE ×2 (15:00→16:00)
[2020-11-02] MEDS ORDERED: CITALOPRAM 20 MG TABLET PO SCH (16:00)
[2020-11-02] MEDS ORDERED: LISI5TAB7 PO (18:40)
[2020-11-03] MEDS ORDERED: CITALOPRAM 20 MG TABLET PO SCH (09:00)
== END 2020-11-02 20:54 | disposition home health service (06) | DRG 463 ==
LOC: ED 14:40 → 3N 14:46 → ED 14:46 → SUATTDRO 15:12 → 3N 15:22
PROVIDERS: ADMIT Hospitalist; ATTEND Hospitalist
PROC: 0L8P0ZZ Division of Left Lower Leg Tendon, Open Approach (ICD-10-PCS; principal; 2020-10-27 15:00)
PROC: 0JBR0ZZ Excision of Left Foot Subcutaneous Tissue and Fascia, Open Approach (ICD-10-PCS; 2020-10-27 15:00)
DX: M62.472 Contracture of muscle, left ankle and foot (principal); L89.623 Pressure ulcer of left heel, stage 3; L03.116 Cellulitis of left lower limb; Z68.41 Body mass index [BMI] 40.0-44.9, adult; I50.42 Chronic combined systolic (congestive) and diastolic (congestive) heart failure; L02.612 Cutaneous abscess of left foot; S92.512B Displaced fracture of proximal phalanx of left lesser toe(s), initial encounter for open fracture; E11.621 Type 2 diabetes mellitus with foot ulcer; B37.9 Candidiasis, unspecified; E11.42 Type 2 diabetes mellitus with diabetic polyneuropathy; E66.9 Obesity, unspecified; Z91.010 Allergy to peanuts; Z20.822 Contact with and (suspected) exposure to COVID-19; E78.00 Pure hypercholesterolemia, unspecified; E78.5 Hyperlipidemia, unspecified; G25.81 Restless legs syndrome; I11.0 Hypertensive heart disease with heart failure; I25.10 Atherosclerotic heart disease of native coronary artery without angina pectoris; L97.529 Non-pressure chronic ulcer of other part of left foot with unspecified severity; Z79.4 Long term (current) use of insulin; Z80.3 Family history of malignant neoplasm of breast; Z81.1 Family history of alcohol abuse and dependence; Z82.49 Family history of ischemic heart disease and other diseases of the circulatory system; Z82.5 Family history of asthma and other chronic lower respiratory diseases; Z83.3 Family history of diabetes mellitus; Z85.6 Personal history of leukemia; Z86.72 Personal history of thrombophlebitis; Z89.421 Acquired absence of other right toe(s); Z90.710 Acquired absence of both cervix and uterus; Z95.1 Presence of aortocoronary bypass graft; K21.9 Gastro-esophageal reflux disease without esophagitis; G47.33 Obstructive sleep apnea (adult) (pediatric); E11.65 Type 2 diabetes mellitus with hyperglycemia
CPT/HCPCS: 36415; 80048; 80053; 80202; 82040; 82565; 82962; 83036; 85025; 85651; 87635; 96365; G0378; J0295; J0690; J1100; J1650; J2405; J2704; J2710; J3010; J3370; Q0162; J0330; J1815; J7050